=== PATIENT | female | born 1955 | race Caucasian/White ===

== ENCOUNTER 2021-12-03 09:57 | Inpatient (IN) | payer MEDICARE ==
[2021-12-03 10:44] LABS: Hemoglobin 14.4 g/dL (12.0-15.5); Mean Corpuscular HGB CONC 32.7 g/dL (32.0-36.0); Mean Corpuscular Hemoglobin 27.4 pg (27.0-33.0); Mean Platelet Volume 12.3 fl (7.4-10.4); Platelet Count 212 10x3/uL (150-450); RBC Distribution Width 17.5 % (11.5-14.5); Red Blood Cell (RBC) Count 5.25 10x6/uL (3.90-5.03); White Blood Cell (WBC) Count 20.2 10x3/uL (3.5-10.5)
[2021-12-03 10:53] LABS: ALT (SGPT) 45 U/L (8-55); AST (SGOT) 137 U/L (5-34); Albumin 3.7 g/dL (3.4-4.8); Alkaline Phosphatase 86 U/L (40-110); Anion Gap 20 mmol/L (10-20); BUN (Urea Nitrogen) 38 mg/dL (9.8-20.1); Bilirubin, Total 1.1 mg/dL (0.2-1.2); Calc. Creatinine Clearance 0 mL/min (70-130); Calcium 10.3 mg/dL (7.8-10.44); Carbon Dioxide 19 mmol/L (23-31); Chloride 100 mmol/L (98-107); Globulin 2.5 g/dL (2.4-3.5); Glucose 204 mg/dL (80-115); Potassium 5.1 mmol/L (3.5-5.1); Protein, Total 6.2 g/dL (5.8-8.1); Sodium 134 mmol/L (136-145)
[2021-12-03 11:00] LABS: MDiff Complete? YES
[2021-12-03 11:08] LABS: Band 14 % (5-11); Lymphocytes 4 % (21-51); Monocytes 1 % (0-10); Neutrophil 79 % (42-75); Platelet Morphology Comment Appears Adequate; Reactive Lymphocytes 2 % (0-10)
[2021-12-03 11:09] LABS: RBC Morphology Normal
[2021-12-03] MEDS ORDERED: Acetaminophen 500 MG TAB ONE (11:21)
[2021-12-03 11:29] LABS: CKMB 58.5 ng/mL (0-6.6)
[2021-12-03 13:42] LABS: Lactic Acid 2.4 mmol/L (0.5-2.2)
[2021-12-03 13:51] LABS: SARS-CoV-2 NAA Rapid Test Not Detected (NotDetected)
[2021-12-03] MEDS ORDERED: Dextrose 50% Abboject 50 ML SYRINGE SLOW IVP PRN (13:52)
[2021-12-03] MEDS ORDERED: Dextrose 5% in Water 1,000 ML IV PRN (13:52)
[2021-12-03 14:54] LABS: Troponin I 0.637 ng/mL (< 0.028)
[2021-12-03 15:07] LABS: Clarity Hazy (Clear); Glucose, Urine (Dipstick) Normal (Negative); Ketone, Urine Negative (Negative); Nitrite Negative (Negative); Urobilinogen Normal mg/dL (Less than 2)
[2021-12-03 15:08] LABS: Bilirubin Unable to Interpret (Negative); Blood, Urine Unable to Interpret (Negative); Leukocyte Unable to Interpret (Negative); Protein, Urine (Dipstick) Unable to Interpret mg/dl (Neg-Trace)
[2021-12-03 15:09] LABS: RBC/HPF 0-3 HPF (0-3); WBC/HPF 21-50 HPF (0-3)
[2021-12-03 15:13] VITALS: BMI 65.0
[2021-12-03 15:15] LABS: Squamous Epithelial 0-3 HPF (0-3)
[2021-12-03 15:16] LABS: Bacteria/HPF 2+ HPF (None Seen)
[2021-12-03] MEDS ORDERED: Apixaban 2.5 MG TAB PO SCH (16:00)
[2021-12-03 16:35] LABS: Troponin I 0.617 ng/mL (< 0.028)
[2021-12-03] MEDS: Sodium Chloride 0.9% 1,000 ML IV SCH (17:34)
[2021-12-03] MEDS: HumaLOG 300 UNITS/3 ML VIAL SC PRN (17:37)
[2021-12-03 18:13] LABS: Troponin I 0.546 ng/mL (< 0.028)
[2021-12-03] MEDS ORDERED: Digoxin 0.5 MG/2 ML AMP SLOW IVP SCH (18:30)
[2021-12-03 19:18] LABS: Lactic Acid 1.4 mmol/L (0.5-2.2)
[2021-12-03] MEDS: Apixaban 5 MG TAB PO SCH (20:35)
[2021-12-03] MEDS: Acetaminophen 325 MG TAB PO PRN (20:45)
[2021-12-04] MEDS ORDERED: Promethazine HCl 12.5 MG, Admixture Fee 1 EACH in Sodium Chloride 0.9% 50 ML IVPB SCH (03:30)
[2021-12-04] MEDS: Acetaminophen 325 MG TAB PO PRN (03:58)
[2021-12-04 04:27] LABS: Hemoglobin 13.5 g/dL (12.0-15.5); Mean Corpuscular HGB CONC 31.9 g/dL (32.0-36.0); Mean Corpuscular Hemoglobin 27.3 pg (27.0-33.0); Mean Corpuscular Volume 85.6 fl (81.6-98.3); Mean Platelet Volume 11.6 fl (7.4-10.4); Platelet Count 185 10x3/uL (150-450); RBC Distribution Width 17.2 % (11.5-14.5); Red Blood Cell (RBC) Count 4.94 10x6/uL (3.90-5.03); White Blood Cell (WBC) Count 21.2 10x3/uL (3.5-10.5)
[2021-12-04 04:38] LABS: MDiff Complete? YES; Manual Diff?? YES
[2021-12-04 04:40] LABS: Anion Gap 16 mmol/L (10-20); BUN (Urea Nitrogen) 40 mg/dL (9.8-20.1); CK (CPK) 2522 U/L (29-168); Calc. Creatinine Clearance 68 mL/min (70-130); Calcium 9.6 mg/dL (7.8-10.44); Carbon Dioxide 17 mmol/L (23-31); Chloride 106 mmol/L (98-107); Glucose 214 mg/dL (80-115); Potassium 4.8 mmol/L (3.5-5.1); Sodium 134 mmol/L (136-145)
[2021-12-04 04:49] LABS: Band 24 % (5-11); Lymphocytes 1 % (21-51); Metamyelocyte 2 % (0-0); Monocytes 7 % (0-10); Neutrophil 66 % (42-75)
[2021-12-04 04:50] LABS: Platelet Morphology Comment Appears Adequate
[2021-12-04 04:51] LABS: Anisocytosis SLIGHT = 6-15 cells (100X) (0-5/hpf); Dohle Bodies SLIGHT; Toxic Granulation SLIGHT; Vacuoles SLIGHT
[2021-12-04] MEDS: Sodium Chloride 0.9% 1,000 ML IV SCH ×2 (06:10→20:37)
[2021-12-04] MEDS ORDERED: Cepastat Lozenges 1 LOZ PO PRN (07:47)
[2021-12-04] MEDS ORDERED: Ondansetron ODT 4 MG TAB PO PRN (07:47)
[2021-12-04] MEDS ORDERED: Loperamide HCl 2 MG CAP PO PRN (07:47)
[2021-12-04] MEDS ORDERED: Ondansetron PF 4 MG/2 ML Vial IVP PRN (07:47)
[2021-12-04] MEDS ORDERED: Moisturizing Cream (Eucerin) 113 GM JAR TOP PRN (07:47)
[2021-12-04] MEDS ORDERED: Loratadine 10 MG TAB PO PRN (07:47)
[2021-12-04] MEDS ORDERED: hydrALAZINE 20 MG/ML VIAL SLOW IVP PRN (07:47)
[2021-12-04] MEDS ORDERED: GUAIFENESIN SF SOLN 200 MG/10 ML UDCUP PO PRN (07:47)
[2021-12-04] MEDS ORDERED: Artificial Tear Sol 15 ML BOT EA EYE PRN (07:47)
[2021-12-04] MEDS ORDERED: Meropenem 1 GM in Sodium Chloride 0.9% 100 ML IVPB SCH (08:30)
[2021-12-04] MEDS ORDERED: Senokot S 8.6-50 MG TAB PO PRN (09:00)
[2021-12-04 09:13] LABS: Calcium Oxalate Crystals Rare HPF (None Seen)
[2021-12-04] MEDS: Apixaban 5 MG TAB PO SCH ×2 (09:30→20:38)
[2021-12-04] MEDS: NPH, Human Insulin Isophane 300 UNIT/3 ML VIAL SC SCH ×2 (09:30→20:53)
[2021-12-04] MEDS: Digoxin 0.125 MG TAB PO SCH (09:38)
[2021-12-04] MEDS ORDERED: Iopamidol 30 ML ONE (14:44)
[2021-12-04] MEDS ORDERED: SUGAMMADEX SODIUM 200 MG/2 ML VIAL ONE (15:11)
[2021-12-04] MEDS ORDERED: PROPOFOL 20 ML ONE (15:11)
[2021-12-04] MEDS ORDERED: Succinylcholine 200 MG/10 ml SYRINGE FS ONE (15:13)
[2021-12-04] MEDS: Meropenem 1 GM in Sodium Chloride 0.9% 100 ML IVPB SCH (15:56)
[2021-12-04] MEDS ORDERED: Fentanyl 100 MCG/2 ML VIAL ONE (16:39)
[2021-12-04] MEDS ORDERED: Midazolam HCl 2 mg/2 ml Vial ONE (16:40)
[2021-12-04] MEDS ORDERED: Ondansetron PF 4 MG/2 ML Vial ONE (17:12)
[2021-12-04] MEDS ORDERED: Metoprolol Tartrate 5 MG/5 ML VIAL ONE (17:46)
[2021-12-04] MEDS: Metoprolol Tartrate 25 MG TAB PO SCH (20:38)
[2021-12-04] MEDS: HYDROcodone/Acetaminophen 5/325 mg Tablet PO PRN (20:47)
[2021-12-04] MEDS ORDERED: Zolpidem Tartrate 5 MG TAB PO PRN (21:00)
[2021-12-04] MEDS: Melatonin 3 MG TAB PO PRN (23:03)
[2021-12-05 03:28] LABS: MDiff Complete? YES; Manual Diff?? YES; Mean Corpuscular HGB CONC 31.7 g/dL (32.0-36.0); Mean Corpuscular Hemoglobin 27.1 pg (27.0-33.0); Mean Corpuscular Volume 85.4 fl (81.6-98.3); Mean Platelet Volume 12.5 fl (7.4-10.4); Platelet Count 172 10x3/uL (150-450); RBC Distribution Width 17.3 % (11.5-14.5)
[2021-12-05] MEDS: Meropenem 1 GM in Sodium Chloride 0.9% 100 ML IVPB SCH ×2 (03:37→17:46)
[2021-12-05 03:45] LABS: Band 25 % (5-11); Lymphocytes 3 % (21-51); Monocytes 6 % (0-10); Neutrophil 64 % (42-75); Reactive Lymphocytes 2 % (0-10)
[2021-12-05 03:46] LABS: Anisocytosis SLIGHT = 6-15 cells (100X) (0-5/hpf); Macrocytosis SLIGHT = 6-15 cells (100X) (0-5/hpf); Microcytosis SLIGHT = 6-15 cells (100X) (0-5/hpf); Target Cells SLIGHT = 2-5 cells (100X) (0-1/hpf)
[2021-12-05] MEDS: Acetaminophen 325 MG TAB PO PRN ×2 (03:46→09:50)
[2021-12-05 06:24] LABS: ALT (SGPT) 45 U/L (8-55); AST (SGOT) 55 U/L (5-34); Albumin 3.1 g/dL (3.4-4.8); Alkaline Phosphatase 84 U/L (40-110); Anion Gap 16 mmol/L (10-20); BUN (Urea Nitrogen) 40 mg/dL (9.8-20.1); Bilirubin, Direct 0.3 mg/dL (0.1-0.3); Bilirubin, Total 0.5 mg/dL (0.2-1.2); CK (CPK) 620 U/L (29-168); Calc. Creatinine Clearance 84 mL/min (70-130); Calcium 9.5 mg/dL (7.8-10.44); Carbon Dioxide 18 mmol/L (23-31); Chloride 107 mmol/L (98-107); Glucose 269 mg/dL (80-115); Magnesium 1.9 mg/dL (1.6-2.6); Phosphorus 2.7 mg/dL (2.3-4.7); Potassium 4.8 mmol/L (3.5-5.1); Sodium 136 mmol/L (136-145)
[2021-12-05] MEDS: HumaLOG 300 UNITS/3 ML VIAL SC PRN ×4 (06:35→21:45)
[2021-12-05] MEDS: Apixaban 5 MG TAB PO SCH ×2 (09:41→21:31)
[2021-12-05] MEDS: Digoxin 0.125 MG TAB PO SCH (09:42)
[2021-12-05] MEDS: Metoprolol Tartrate 25 MG TAB PO SCH ×2 (09:43→21:31)
[2021-12-05] MEDS: NPH, Human Insulin Isophane 300 UNIT/3 ML VIAL SC SCH ×2 (09:44→21:41)
[2021-12-05] MEDS: HYDROcodone/Acetaminophen 5/325 mg Tablet PO PRN (14:21)
[2021-12-05] MEDS: Sodium Chloride 0.9% 1,000 ML IV SCH (14:28)
[2021-12-06] MEDS: Acetaminophen 325 MG TAB PO PRN ×5 (00:36→22:59)
[2021-12-06] MEDS: Sodium Chloride 0.9% 1,000 ML IV SCH (00:53)
[2021-12-06] MEDS: Meropenem 1 GM in Sodium Chloride 0.9% 100 ML IVPB SCH ×3 (04:36→21:42)
[2021-12-06 04:53] LABS: #Eosinphils 0.2 10x3/uL (0.0-0.5); #Monocytes 1.3 10x3/uL (0.0-1.1); #Neutrophils 11.6 10x3/uL (1.5-8.4); %Basophils 0.3 % (0.0-2.0); %Lymphocytes 7.9 % (18.0-47.0); %Monocytes 9.1 % (0.0-10.0); %Neutrophils 80.7 % (40.0-75.0); Hemoglobin 13.1 g/dL (12.0-15.5); Mean Corpuscular HGB CONC 32.1 g/dL (32.0-36.0); Mean Corpuscular Hemoglobin 27.2 pg (27.0-33.0); Mean Corpuscular Volume 84.8 fl (81.6-98.3); Mean Platelet Volume 12.5 fl (7.4-10.4); Platelet Count 195 10x3/uL (150-450); Red Blood Cell (RBC) Count 4.81 10x6/uL (3.90-5.03); White Blood Cell (WBC) Count 14.4 10x3/uL (3.5-10.5)
[2021-12-06 05:04] LABS: Anion Gap 13 mmol/L (10-20); BUN (Urea Nitrogen) 33 mg/dL (9.8-20.1); Calc. Creatinine Clearance 135 mL/min (70-130); Calcium 9.5 mg/dL (7.8-10.44); Carbon Dioxide 20 mmol/L (23-31); Chloride 107 mmol/L (98-107); Glucose 273 mg/dL (80-115); Potassium 4.6 mmol/L (3.5-5.1); Sodium 135 mmol/L (136-145)
[2021-12-06] MEDS: HumaLOG 300 UNITS/3 ML VIAL SC PRN ×3 (05:38→16:05)
[2021-12-06] MEDS ORDERED: NPH, Human Insulin Isophane 300 UNIT/3 ML VIAL SC SCH ×2 (07:42→07:45)
[2021-12-06] MEDS: Polyethylene Glycol 3350 17 GM Packet PO SCH (09:11)
[2021-12-06] MEDS: Metoprolol Tartrate 25 MG TAB PO SCH ×2 (09:12→20:46)
[2021-12-06] MEDS: Digoxin 0.125 MG TAB PO SCH (09:13)
[2021-12-06] MEDS: Apixaban 5 MG TAB PO SCH ×2 (09:14→20:46)
[2021-12-06] MEDS ORDERED: Digoxin 0.125 MG TAB PO SCH (12:00)
[2021-12-06] MEDS: HYDROcodone/Acetaminophen 5/325 mg Tablet PO PRN (13:19)
[2021-12-06] MEDS: Melatonin 3 MG TAB PO PRN (20:46)
[2021-12-06] MEDS: NPH, Human Insulin Isophane 300 UNIT/3 ML VIAL SC SCH (20:49)
[2021-12-07] MEDS: Meropenem 1 GM in Sodium Chloride 0.9% 100 ML IVPB SCH ×3 (03:45→21:01)
[2021-12-07 04:20] LABS: #Basophils 0.1 10x3/uL (0.0-0.2); #Eosinphils 0.3 10x3/uL (0.0-0.5); #Monocytes 1.6 10x3/uL (0.0-1.1); #Neutrophils 9.4 10x3/uL (1.5-8.4); %Basophils 0.8 % (0.0-2.0); %Lymphocytes 12.8 % (18.0-47.0); %Monocytes 11.6 % (0.0-10.0); %Neutrophils 69.7 % (40.0-75.0); Hemoglobin 14.1 g/dL (12.0-15.5); Mean Corpuscular HGB CONC 32.8 g/dL (32.0-36.0); Mean Corpuscular Hemoglobin 27.5 pg (27.0-33.0); Mean Platelet Volume 12.1 fl (7.4-10.4); Platelet Count 212 10x3/uL (150-450); RBC Distribution Width 17.1 % (11.5-14.5); Red Blood Cell (RBC) Count 5.12 10x6/uL (3.90-5.03); White Blood Cell (WBC) Count 13.5 10x3/uL (3.5-10.5)
[2021-12-07] MEDS: HYDROcodone/Acetaminophen 5/325 mg Tablet PO PRN (04:49)
[2021-12-07 04:53] LABS: Digoxin 0.39 ng/mL (0.8-2.0)
[2021-12-07 04:56] LABS: Anion Gap 14 mmol/L (10-20); BUN (Urea Nitrogen) 28 mg/dL (9.8-20.1); CK (CPK) 103 U/L (29-168); Calc. Creatinine Clearance 158 mL/min (70-130); Calcium 9.3 mg/dL (7.8-10.44); Carbon Dioxide 21 mmol/L (23-31); Chloride 107 mmol/L (98-107); Glucose 249 mg/dL (80-115); Potassium 4.6 mmol/L (3.5-5.1); Sodium 137 mmol/L (136-145)
[2021-12-07] MEDS: HumaLOG 300 UNITS/3 ML VIAL SC PRN (06:22)
[2021-12-07] MEDS: Metoprolol Tartrate 25 MG TAB PO SCH ×2 (10:06→20:59)
[2021-12-07] MEDS: Acetaminophen 325 MG TAB PO PRN ×3 (10:07→20:15)
[2021-12-07] MEDS: Digoxin 0.25 MG TAB PO SCH (10:07)
[2021-12-07] MEDS: Apixaban 5 MG TAB PO SCH ×2 (10:07→20:59)
[2021-12-07] MEDS: Polyethylene Glycol 3350 17 GM Packet PO SCH (10:11)
[2021-12-07] MEDS: NPH, Human Insulin Isophane 300 UNIT/3 ML VIAL SC SCH ×2 (12:17→21:01)
[2021-12-07] MEDS ORDERED: Sodium Chloride 0.9% 100 ML ONE (20:33)
[2021-12-07] MEDS: Melatonin 3 MG TAB PO PRN (20:58)
[2021-12-08] MEDS: Acetaminophen 325 MG TAB PO PRN ×6 (01:04→21:19)
[2021-12-08 04:40] LABS: Hemoglobin 14.2 g/dL (12.0-15.5); Mean Corpuscular HGB CONC 33.6 g/dL (32.0-36.0); Mean Corpuscular Hemoglobin 27.3 pg (27.0-33.0); Mean Corpuscular Volume 81.3 fl (81.6-98.3); Mean Platelet Volume 12.4 fl (7.4-10.4); Platelet Count 256 10x3/uL (150-450); RBC Distribution Width 16.9 % (11.5-14.5); White Blood Cell (WBC) Count 14.1 10x3/uL (3.5-10.5)
[2021-12-08 05:10] LABS: Anion Gap 15 mmol/L (10-20); BUN (Urea Nitrogen) 26 mg/dL (9.8-20.1); Calc. Creatinine Clearance 175 mL/min (70-130); Calcium 9.5 mg/dL (7.8-10.44); Carbon Dioxide 20 mmol/L (23-31); Chloride 107 mmol/L (98-107); Glucose 269 mg/dL (80-115); Potassium 6.1 mmol/L (3.5-5.1); Sodium 136 mmol/L (136-145)
[2021-12-08 05:15] LABS: MDiff Complete? YES; Manual Diff?? YES
[2021-12-08 05:21] LABS: Band 1 % (5-11); Eosinophils 2 % (0-10); Lymphocytes 5 % (21-51); Monocytes 18 % (0-10); Neutrophil 72 % (42-75); Reactive Lymphocytes 2 % (0-10)
[2021-12-08 05:22] LABS: Anisocytosis SLIGHT = 6-15 cells (100X) (0-5/hpf); Platelet Morphology Comment Appears Adequate
[2021-12-08] MEDS: Meropenem 1 GM in Sodium Chloride 0.9% 100 ML IVPB SCH ×3 (05:29→21:00)
[2021-12-08] MEDS: HumaLOG 300 UNITS/3 ML VIAL SC PRN ×2 (06:45→20:57)
[2021-12-08 08:32] LABS: Potassium 4.4 mmol/L (3.5-5.1)
[2021-12-08] MEDS: Polyethylene Glycol 3350 17 GM Packet PO SCH (10:00)
[2021-12-08] MEDS: Metoprolol Tartrate 25 MG TAB PO SCH ×2 (10:00→19:52)
[2021-12-08] MEDS: Apixaban 5 MG TAB PO SCH ×2 (10:01→19:51)
[2021-12-08] MEDS: Digoxin 0.25 MG TAB PO SCH (10:01)
[2021-12-08] MEDS: NPH, Human Insulin Isophane 300 UNIT/3 ML VIAL SC SCH ×2 (10:02→20:57)
[2021-12-09] MEDS: Acetaminophen 325 MG TAB PO PRN ×6 (03:04→21:09)
[2021-12-09] MEDS: Melatonin 3 MG TAB PO PRN ×2 (03:13→20:53)
[2021-12-09] MEDS: Meropenem 1 GM in Sodium Chloride 0.9% 100 ML IVPB SCH ×3 (05:39→22:03)
[2021-12-09] MEDS: HumaLOG 300 UNITS/3 ML VIAL SC PRN ×3 (05:39→16:44)
[2021-12-09] MEDS: Polyethylene Glycol 3350 17 GM Packet PO SCH (08:40)
[2021-12-09] MEDS: Apixaban 5 MG TAB PO SCH ×2 (08:41→20:53)
[2021-12-09] MEDS: Digoxin 0.25 MG TAB PO SCH (08:41)
[2021-12-09] MEDS: NPH, Human Insulin Isophane 300 UNIT/3 ML VIAL SC SCH ×2 (08:42→20:55)
[2021-12-09] MEDS: Metoprolol Tartrate 25 MG TAB PO SCH ×2 (08:42→20:53)
[2021-12-09] MEDS ORDERED: Mineral Oil ENEMA PR SCH (13:45)
[2021-12-10] MEDS: Acetaminophen 325 MG TAB PO PRN ×5 (01:00→20:53)
[2021-12-10] MEDS: Meropenem 1 GM in Sodium Chloride 0.9% 100 ML IVPB SCH ×3 (05:53→21:01)
[2021-12-10 07:06] LABS: #Basophils 0.1 10x3/uL (0.0-0.2); #Eosinphils 0.3 10x3/uL (0.0-0.5); #Monocytes 1.1 10x3/uL (0.0-1.1); #Neutrophils 9.6 10x3/uL (1.5-8.4); %Basophils 0.4 % (0.0-2.0); %Eosinophils 1.9 % (0.0-6.0); %Lymphocytes 14.5 % (18.0-47.0); %Monocytes 8.5 % (0.0-10.0); %Neutrophils 72.9 % (40.0-75.0); Anion Gap 11 mmol/L (10-20); BUN (Urea Nitrogen) 20 mg/dL (9.8-20.1); Calc. Creatinine Clearance 204 mL/min (70-130); Calcium 9.3 mg/dL (7.8-10.44); Carbon Dioxide 26 mmol/L (23-31); Chloride 107 mmol/L (98-107); Glucose 151 mg/dL (80-115); Hemoglobin 15.4 g/dL (12.0-15.5); Mean Corpuscular HGB CONC 33.2 g/dL (32.0-36.0); Mean Corpuscular Hemoglobin 26.9 pg (27.0-33.0); Mean Platelet Volume 11.8 fl (7.4-10.4); Platelet Count 305 10x3/uL (150-450); Potassium 4.4 mmol/L (3.5-5.1); RBC Distribution Width 17.7 % (11.5-14.5); Red Blood Cell (RBC) Count 5.73 10x6/uL (3.90-5.03); Sodium 140 mmol/L (136-145); White Blood Cell (WBC) Count 13.1 10x3/uL (3.5-10.5)
[2021-12-10] MEDS: Polyethylene Glycol 3350 17 GM Packet PO SCH (08:15)
[2021-12-10] MEDS: Apixaban 5 MG TAB PO SCH ×2 (08:16→20:53)
[2021-12-10] MEDS: Metoprolol Tartrate 25 MG TAB PO SCH ×2 (08:16→20:54)
[2021-12-10] MEDS: Digoxin 0.25 MG TAB PO SCH (08:16)
[2021-12-10] MEDS: NPH, Human Insulin Isophane 300 UNIT/3 ML VIAL SC SCH ×2 (08:24→20:59)
[2021-12-10] MEDS: HumaLOG 300 UNITS/3 ML VIAL SC PRN ×2 (11:57→18:21)
[2021-12-10] MEDS ORDERED: Mineral Oil ENEMA PR SCH (12:00)
[2021-12-10 12:15] LABS: INR-International Normal Ratio 1.1; Prothrombin Time 11.9 sec (9.5-12.1)
[2021-12-10] MEDS ORDERED: Sodium Bicarbonate 2.5 MEQ/5 ML VIAL ONE (12:44)
[2021-12-10] MEDS ORDERED: Lidocaine 1% PF 5 ML VIAL ONE (12:44)
[2021-12-10] MEDS ORDERED: GoLYTELY 4,000 ml Bottle PO SCH (17:00)
[2021-12-11 00:18] LABS: SARS-CoV-2 PCR by NAA Not Detected (NotDetected)
[2021-12-11] MEDS: Acetaminophen 325 MG TAB PO PRN ×2 (00:53→04:51)
[2021-12-11 05:07] LABS: #Basophils 0.1 10x3/uL (0.0-0.2); #Eosinphils 0.2 10x3/uL (0.0-0.5); #Monocytes 0.9 10x3/uL (0.0-1.1); #Neutrophils 11.1 10x3/uL (1.5-8.4); %Basophils 0.4 % (0.0-2.0); %Eosinophils 1.4 % (0.0-6.0); %Lymphocytes 13.7 % (18.0-47.0); %Monocytes 6.5 % (0.0-10.0); %Neutrophils 76.9 % (40.0-75.0); Hemoglobin 14.6 g/dL (12.0-15.5); Mean Corpuscular HGB CONC 33.3 g/dL (32.0-36.0); Mean Corpuscular Hemoglobin 27.3 pg (27.0-33.0); Mean Corpuscular Volume 81.9 fl (81.6-98.3); Mean Platelet Volume 12.1 fl (7.4-10.4); Platelet Count 287 10x3/uL (150-450); Red Blood Cell (RBC) Count 5.35 10x6/uL (3.90-5.03); White Blood Cell (WBC) Count 14.4 10x3/uL (3.5-10.5)
[2021-12-11] MEDS: Meropenem 1 GM in Sodium Chloride 0.9% 100 ML IVPB SCH (05:11)
[2021-12-11 05:19] LABS: Anion Gap 13 mmol/L (10-20); BUN (Urea Nitrogen) 18 mg/dL (9.8-20.1); Calc. Creatinine Clearance 220 mL/min (70-130); Calcium 8.8 mg/dL (7.8-10.44); Carbon Dioxide 27 mmol/L (23-31); Chloride 105 mmol/L (98-107); Glucose 142 mg/dL (80-115); Potassium 4.9 mmol/L (3.5-5.1); Sodium 140 mmol/L (136-145)
[2021-12-11 07:55] VITALS: TEMP 97.4
[2021-12-11] MEDS: Metoprolol Tartrate 25 MG TAB PO SCH (09:34)
[2021-12-11] MEDS: Apixaban 5 MG TAB PO SCH (09:34)
[2021-12-11] MEDS: Digoxin 0.25 MG TAB PO SCH (09:34)
[2021-12-11] MEDS: NPH, Human Insulin Isophane 300 UNIT/3 ML VIAL SC SCH (09:34)
[2021-12-11] MEDS: Polyethylene Glycol 3350 17 GM Packet PO SCH (09:35)
[2021-12-11 12:04] VITALS: BP 148/94
== END 2021-12-11 11:17 | DRG 853 ==
LOC: CSHERS 09:57 → CSHTELE 13:04
PROVIDERS: ADMIT Student in an Organized Health Care Education/Training Program; ATTEND Internal Medicine
PROC: 5A09357 Assistance with Respiratory Ventilation, Less than 24 Consecutive Hours, Continuous Positive Airway Pressure (ICD-10-PCS; 2021-12-03)
PROC: 0T778DZ Dilation of Left Ureter with Intraluminal Device, Via Natural or Artificial Opening Endoscopic (ICD-10-PCS; principal; 2021-12-04)
PROC: BT1F1ZZ Fluoroscopy of Left Kidney, Ureter and Bladder using Low Osmolar Contrast (ICD-10-PCS; 2021-12-04)
PROC: 02HV33Z Insertion of Infusion Device into Superior Vena Cava, Percutaneous Approach (ICD-10-PCS; 2021-12-10)
PROC: B5181ZA Fluoroscopy of Superior Vena Cava using Low Osmolar Contrast, Guidance (ICD-10-PCS; 2021-12-10)
PROC: B548ZZA Ultrasonography of Superior Vena Cava, Guidance (ICD-10-PCS; 2021-12-10)
DX: A41.59 Other Gram-negative sepsis (principal); I21.A1 Myocardial infarction type 2; J96.01 Acute respiratory failure with hypoxia; N17.9 Acute kidney failure, unspecified; N13.6 Pyonephrosis; I48.21 Permanent atrial fibrillation; Z68.44 Body mass index [BMI] 60.0-69.9, adult; J90 Pleural effusion, not elsewhere classified; J98.11 Atelectasis; F41.1 Generalized anxiety disorder; R65.20 Severe sepsis without septic shock; J45.909 Unspecified asthma, uncomplicated; E66.01 Morbid (severe) obesity due to excess calories; G47.33 Obstructive sleep apnea (adult) (pediatric); M19.90 Unspecified osteoarthritis, unspecified site; G25.81 Restless legs syndrome; E11.40 Type 2 diabetes mellitus with diabetic neuropathy, unspecified; Z20.822 Contact with and (suspected) exposure to COVID-19; T79.6XXA Traumatic ischemia of muscle, initial encounter; E11.65 Type 2 diabetes mellitus with hyperglycemia; K59.00 Constipation, unspecified; W19.XXXA Unspecified fall, initial encounter; Z91.81 History of falling; Z79.82 Long term (current) use of aspirin; Z79.01 Long term (current) use of anticoagulants; Z88.1 Allergy status to other antibiotic agents; Z88.0 Allergy status to penicillin; Z79.899 Other long term (current) drug therapy; Z79.4 Long term (current) use of insulin; Y92.9 Unspecified place or not applicable
CPT/HCPCS: 36415; 36416; 36569; 51600; 51701; 70450; 71045; 74176; 74430; 80048; 80053; 80076; 80162; 81001; 82550; 82553; 83605; 83735; 84100; 84484; 85025; 85610; 87040; 87070; 87077; 87086; 87149; 87186; 87205; 93005; 93010; 94760; 96374; C1751; C2625; J1160; J1815; J1956; J2185; J2250; J2405; J2550; J2704; J3010; J3370; J3490; J7050; Q9967; U0003; U0005

== ENCOUNTER 2021-12-27 14:25 | Inpatient (IN) | payer MEDICARE ==
[~2021-12-27 14:25] MED LIST: Iopamidol 370 76% 100 ML VIAL ONE
[2021-12-27 15:04] LABS: #Basophils 0.1 10x3/uL (0.0-0.2); #Monocytes 0.8 10x3/uL (0.0-1.1); #Neutrophils 8.2 10x3/uL (1.5-8.4); %Basophils 0.6 % (0.0-2.0); %Eosinophils 0.4 % (0.0-6.0); %Lymphocytes 9.5 % (18.0-47.0); %Monocytes 7.9 % (0.0-10.0); %Neutrophils 81.1 % (40.0-75.0); Hemoglobin 13.9 g/dL (12.0-15.5); Mean Corpuscular Hemoglobin 26.3 pg (27.0-33.0); Mean Corpuscular Volume 82.4 fl (81.6-98.3); Mean Platelet Volume 11.4 fl (7.4-10.4); Platelet Count 249 10x3/uL (150-450); RBC Distribution Width 15.9 % (11.5-14.5); Red Blood Cell (RBC) Count 5.28 10x6/uL (3.90-5.03); White Blood Cell (WBC) Count 10.1 10x3/uL (3.5-10.5)
[2021-12-27] MEDS ORDERED: Ondansetron PF 4 MG/2 ML Vial ONE (15:05)
[2021-12-27] MEDS ORDERED: Cefepime 2 GM VIAL ONE (15:06)
[2021-12-27] MEDS ORDERED: Vancomycin HCl 500 MG VIAL ONE (15:06)
[2021-12-27 15:19] LABS: ALT (SGPT) 58 U/L (8-55); Albumin 3.3 g/dL (3.4-4.8); Alkaline Phosphatase 157 U/L (40-110); Anion Gap 14 mmol/L (10-20); BUN (Urea Nitrogen) 15 mg/dL (9.8-20.1); Bilirubin, Total 0.7 mg/dL (0.2-1.2); Calc. Creatinine Clearance 0 mL/min (70-130); Carbon Dioxide 28 mmol/L (23-31); Chloride 95 mmol/L (98-107); Globulin 3.9 g/dL (2.4-3.5); Glucose 143 mg/dL (80-115); Lipase 16 U/L (8-78); Potassium 4.9 mmol/L (3.5-5.1); Protein, Total 7.2 g/dL (5.8-8.1); Sodium 132 mmol/L (136-145)
[2021-12-27 15:21] LABS: AST (SGOT) 81 U/L (5-34)
[2021-12-27] MEDS ORDERED: Meropenem 500 MG VIAL ONE (16:13)
[2021-12-27 16:14] LABS: Bilirubin Neg (Negative); Blood, Urine 250 (Negative); Clarity Cloudy (Clear); Glucose, Urine (Dipstick) Normal (Negative); Ketone, Urine 5 mg/dL (Negative); Leukocyte 500 (Negative); Nitrite Positive (Negative); Protein, Urine (Dipstick) 100 mg/dl (Neg-Trace); Urobilinogen Normal mg/dL (Less than 2)
[2021-12-27 16:25] LABS: SARS-CoV-2 NAA Rapid Test Not Detected (NotDetected)
[2021-12-27 16:35] LABS: Bacteria/HPF 4+ HPF (None Seen); Squamous Epithelial 0-3 HPF (0-3); WBC/HPF Greater Than 50 HPF (0-3)
[2021-12-27] MEDS ORDERED: Ondansetron PF 4 MG/2 ML Vial IVP PRN (18:24)
[2021-12-27 20:03] VITALS: BMI 70.8
[2021-12-27] MEDS ORDERED: Zolpidem Tartrate 5 MG TAB PO PRN (20:41)
[2021-12-27] MEDS ORDERED: Dextrose 50% Abboject 50 ML SYRINGE SLOW IVP PRN (20:41)
[2021-12-27] MEDS ORDERED: HumaLOG 300 UNITS/3 ML VIAL SC PRN (20:41)
[2021-12-27] MEDS ORDERED: Dextrose 5% in Water 1,000 ML IV PRN (20:41)
[2021-12-27] MEDS ORDERED: Bisacodyl 10 MG SUPP PR PRN (20:41)
[2021-12-27] MEDS ORDERED: Senokot 8.6 MG TAB PO PRN (20:44)
[2021-12-27] MEDS ORDERED: Nystatin Powder 15 GM BOT TOP PRN (20:44)
[2021-12-27] MEDS ORDERED: Melatonin 3 MG TAB PO PRN (20:44)
[2021-12-27] MEDS ORDERED: Artificial Tear Sol 15 ML BOT EA EYE PRN (20:44)
[2021-12-27] MEDS ORDERED: Hydrocortisone 1% Cream 30 GM TUBE TOP PRN (20:44)
[2021-12-27] MEDS ORDERED: [UNRECOGNIZED DRUG - OTHER] PO PRN (20:44)
[2021-12-27] MEDS ORDERED: NPH, Human Insulin Isophane 300 UNIT/3 ML VIAL SC SCH (21:00)
[2021-12-27] MEDS ORDERED: Bisacodyl 5 MG TAB PO SCH (21:00)
[2021-12-27] MEDS ORDERED: Menthol/Camphor Lotion 222 ml Bottle TOP PRN (21:00)
[2021-12-27] MEDS ORDERED: Furosemide 40 MG/4 ML VIAL SLOW IVP SCH (21:00)
[2021-12-27 21:22] LABS: #Basophils 0.1 10x3/uL (0.0-0.2); %Basophils 0.8 % (0.0-2.0); %Eosinophils 0.3 % (0.0-6.0); %Lymphocytes 14.2 % (18.0-47.0); %Monocytes 10.6 % (0.0-10.0); %Neutrophils 73.7 % (40.0-75.0); Hemoglobin 13.1 g/dL (12.0-15.5); Mean Corpuscular HGB CONC 32.3 g/dL (32.0-36.0); Mean Corpuscular Hemoglobin 26.7 pg (27.0-33.0); Mean Corpuscular Volume 82.7 fl (81.6-98.3); Mean Platelet Volume 11.1 fl (7.4-10.4); Platelet Count 213 10x3/uL (150-450); RBC Distribution Width 15.6 % (11.5-14.5); White Blood Cell (WBC) Count 9.5 10x3/uL (3.5-10.5)
[2021-12-27 21:33] LABS: ALT (SGPT) 49 U/L (8-55); AST (SGOT) 57 U/L (5-34); Albumin 3.2 g/dL (3.4-4.8); Alkaline Phosphatase 141 U/L (40-110); Anion Gap 14 mmol/L (10-20); BUN (Urea Nitrogen) 13 mg/dL (9.8-20.1); Bilirubin, Total 0.6 mg/dL (0.2-1.2); Calc. Creatinine Clearance 223 mL/min (70-130); Calcium 9.5 mg/dL (7.8-10.44); Carbon Dioxide 25 mmol/L (23-31); Chloride 99 mmol/L (98-107); Globulin 3.1 g/dL (2.4-3.5); Glucose 143 mg/dL (80-115); Potassium 4.4 mmol/L (3.5-5.1); Protein, Total 6.3 g/dL (5.8-8.1); Sodium 134 mmol/L (136-145)
[2021-12-27] MEDS: Gabapentin 100 MG CAP PO SCH (22:41)
[2021-12-27] MEDS: Famotidine 20 MG TAB PO SCH (22:41)
[2021-12-27] MEDS: Acetaminophen 325 MG TAB PO PRN (22:41)
[2021-12-27] MEDS: Apixaban 5 MG TAB PO SCH (22:42)
[2021-12-27] MEDS: NPH, Human Insulin Isophane 300 UNIT/3 ML VIAL SC SCH (22:42)
[2021-12-27] MEDS: Metoprolol Tartrate 25 MG TAB PO SCH (22:42)
[2021-12-27] MEDS: Sodium Chloride 0.9% 1,000 ML IV SCH (22:47)
[2021-12-28] MEDS: Meropenem 1 GM in Sodium Chloride 0.9% 100 ML IVPB SCH ×2 (01:06→09:40)
[2021-12-28 05:05] LABS: Hemoglobin 13.7 g/dL (12.0-15.5); Mean Corpuscular HGB CONC 31.9 g/dL (32.0-36.0); Mean Corpuscular Hemoglobin 26.6 pg (27.0-33.0); Mean Corpuscular Volume 83.5 fl (81.6-98.3); Mean Platelet Volume 11.5 fl (7.4-10.4); Platelet Count 196 10x3/uL (150-450); RBC Distribution Width 15.8 % (11.5-14.5); Red Blood Cell (RBC) Count 5.15 10x6/uL (3.90-5.03); White Blood Cell (WBC) Count 8.3 10x3/uL (3.5-10.5)
[2021-12-28 05:23] LABS: ALT (SGPT) 43 U/L (8-55); AST (SGOT) 51 U/L (5-34); Albumin 2.9 g/dL (3.4-4.8); Alkaline Phosphatase 139 U/L (40-110); Anion Gap 14 mmol/L (10-20); BUN (Urea Nitrogen) 12 mg/dL (9.8-20.1); Bilirubin, Total 0.5 mg/dL (0.2-1.2); Calc. Creatinine Clearance 211 mL/min (70-130); Calcium 9.1 mg/dL (7.8-10.44); Carbon Dioxide 25 mmol/L (23-31); Chloride 101 mmol/L (98-107); Glucose 115 mg/dL (80-115); Magnesium 1.8 mg/dL (1.6-2.6); Potassium 4.1 mmol/L (3.5-5.1); Protein, Total 5.9 g/dL (5.8-8.1); Sodium 136 mmol/L (136-145)
[2021-12-28 05:25] LABS: MDiff Complete? YES
[2021-12-28 05:28] LABS: Band 7 % (5-11); Eosinophils 2 % (0-10); Lymphocytes 21 % (21-51); Monocytes 11 % (0-10); Neutrophil 55 % (42-75); Reactive Lymphocytes 2 % (0-10)
[2021-12-28 05:29] LABS: Large Platelets SLIGHT; Platelet Morphology Comment Appears Adequate; RBC Morphology Normal
[2021-12-28] MEDS: Sodium Chloride 0.9% 1,000 ML IV SCH ×2 (07:55→12:30)
[2021-12-28] MEDS: Famotidine 20 MG TAB PO SCH ×2 (09:37→20:58)
[2021-12-28] MEDS: Gabapentin 100 MG CAP PO SCH ×3 (09:38→20:58)
[2021-12-28] MEDS: Apixaban 5 MG TAB PO SCH ×2 (09:38→20:57)
[2021-12-28] MEDS: Digoxin 0.25 MG TAB PO SCH (09:38)
[2021-12-28] MEDS: Furosemide 40 MG/4 ML VIAL SLOW IVP SCH (09:39)
[2021-12-28] MEDS: NPH, Human Insulin Isophane 300 UNIT/3 ML VIAL SC SCH ×2 (09:46→20:59)
[2021-12-28] MEDS: Metoprolol Tartrate 25 MG TAB PO SCH ×2 (09:46→20:54)
[2021-12-28] MEDS: Acetaminophen 325 MG TAB PO PRN (11:42)
[2021-12-28] MEDS: Milk Of Magnesia 30 ML UDCUP PO PRN (12:06)
[2021-12-28] MEDS: HumaLOG 300 UNITS/3 ML VIAL SC PRN (12:07)
[2021-12-28] MEDS ORDERED: Ketorolac Tromethamine 30 MG/ML VIAL IVP SCH (12:15)
[2021-12-28] MEDS: HYDROcodone/Acetaminophen 5/325 mg Tablet PO PRN ×2 (12:52→21:45)
[2021-12-28] MEDS: Senokot S 8.6-50 MG TAB PO SCH (20:58)
[2021-12-29] MEDS: Sodium Chloride 0.9% 1,000 ML IV SCH ×3 (02:22→12:02)
[2021-12-29] MEDS: Meropenem 1 GM in Sodium Chloride 0.9% 100 ML IVPB SCH ×4 (02:25→17:14)
[2021-12-29] MEDS: Acetaminophen 325 MG TAB PO PRN (05:50)
[2021-12-29 06:13] LABS: Anion Gap 12 mmol/L (10-20); BUN (Urea Nitrogen) 14 mg/dL (9.8-20.1); Calc. Creatinine Clearance 223 mL/min (70-130); Calcium 9.7 mg/dL (7.8-10.44); Carbon Dioxide 29 mmol/L (23-31); Chloride 100 mmol/L (98-107); Glucose 87 mg/dL (80-115); Potassium 4.3 mmol/L (3.5-5.1); Sodium 137 mmol/L (136-145)
[2021-12-29 06:29] LABS: Hemoglobin 14.2 g/dL (12.0-15.5); Mean Corpuscular HGB CONC 31.8 g/dL (32.0-36.0); Mean Corpuscular Hemoglobin 26.6 pg (27.0-33.0); Mean Corpuscular Volume 83.7 fl (81.6-98.3); Mean Platelet Volume 11.6 fl (7.4-10.4); Platelet Count 206 10x3/uL (150-450); RBC Distribution Width 15.7 % (11.5-14.5); Red Blood Cell (RBC) Count 5.33 10x6/uL (3.90-5.03); White Blood Cell (WBC) Count 7.3 10x3/uL (3.5-10.5)
[2021-12-29 07:06] LABS: MDiff Complete? YES
[2021-12-29 07:09] LABS: Band 3 % (5-11); Eosinophils 2 % (0-10); Lymphocytes 18 % (21-51); Monocytes 14 % (0-10); Neutrophil 62 % (42-75); Reactive Lymphocytes 1 % (0-10)
[2021-12-29 07:10] LABS: Platelet Morphology Comment Appears Adequate; RBC Morphology Normal
[2021-12-29] MEDS: Senokot S 8.6-50 MG TAB PO SCH ×2 (09:26→21:41)
[2021-12-29] MEDS: Gabapentin 100 MG CAP PO SCH ×3 (09:26→21:40)
[2021-12-29] MEDS: Famotidine 20 MG TAB PO SCH ×2 (09:27→21:41)
[2021-12-29] MEDS: Metoprolol Tartrate 25 MG TAB PO SCH ×2 (09:27→21:40)
[2021-12-29] MEDS: Digoxin 0.25 MG TAB PO SCH (09:27)
[2021-12-29] MEDS: Apixaban 5 MG TAB PO SCH ×2 (09:27→21:40)
[2021-12-29] MEDS: NPH, Human Insulin Isophane 300 UNIT/3 ML VIAL SC SCH ×2 (09:28→21:45)
[2021-12-29] MEDS: Furosemide 40 MG/4 ML VIAL SLOW IVP SCH (09:28)
[2021-12-29] MEDS: HYDROcodone/Acetaminophen 5/325 mg Tablet PO PRN ×3 (09:31→21:38)
[2021-12-29] MEDS: HumaLOG 300 UNITS/3 ML VIAL SC PRN (12:22)
[2021-12-30] MEDS: Meropenem 1 GM in Sodium Chloride 0.9% 100 ML IVPB SCH ×3 (00:16→17:57)
[2021-12-30] MEDS: Sodium Chloride 0.9% 1,000 ML IV SCH ×4 (00:20→17:58)
[2021-12-30 05:13] LABS: #Basophils 0.1 10x3/uL (0.0-0.2); #Eosinphils 0.3 10x3/uL (0.0-0.5); #Monocytes 1.4 10x3/uL (0.0-1.1); #Neutrophils 6.1 10x3/uL (1.5-8.4); %Basophils 0.6 % (0.0-2.0); %Eosinophils 3.6 % (0.0-6.0); %Lymphocytes 16.4 % (18.0-47.0); %Monocytes 14.1 % (0.0-10.0); %Neutrophils 63.8 % (40.0-75.0); Hemoglobin 13.5 g/dL (12.0-15.5); Mean Corpuscular HGB CONC 32.8 g/dL (32.0-36.0); Mean Corpuscular Hemoglobin 26.8 pg (27.0-33.0); Mean Corpuscular Volume 81.7 fl (81.6-98.3); Mean Platelet Volume 11.9 fl (7.4-10.4); Platelet Count 242 10x3/uL (150-450); RBC Distribution Width 15.8 % (11.5-14.5); Red Blood Cell (RBC) Count 5.03 10x6/uL (3.90-5.03); White Blood Cell (WBC) Count 9.6 10x3/uL (3.5-10.5)
[2021-12-30 05:23] LABS: Anion Gap 15 mmol/L (10-20); BUN (Urea Nitrogen) 13 mg/dL (9.8-20.1); Calc. Creatinine Clearance 247 mL/min (70-130); Calcium 9.5 mg/dL (7.8-10.44); Carbon Dioxide 25 mmol/L (23-31); Chloride 103 mmol/L (98-107); Glucose 99 mg/dL (80-115); Potassium 4.6 mmol/L (3.5-5.1); Sodium 138 mmol/L (136-145)
[2021-12-30] MEDS: HYDROcodone/Acetaminophen 5/325 mg Tablet PO PRN ×3 (06:32→20:42)
[2021-12-30] MEDS: Digoxin 0.25 MG TAB PO SCH (08:30)
[2021-12-30] MEDS: NPH, Human Insulin Isophane 300 UNIT/3 ML VIAL SC SCH ×2 (08:30→20:51)
[2021-12-30] MEDS: Metoprolol Tartrate 25 MG TAB PO SCH ×2 (08:30→20:39)
[2021-12-30] MEDS: Furosemide 40 MG/4 ML VIAL SLOW IVP SCH (08:30)
[2021-12-30] MEDS: Gabapentin 100 MG CAP PO SCH ×3 (08:30→20:41)
[2021-12-30] MEDS: Apixaban 5 MG TAB PO SCH ×2 (08:30→20:42)
[2021-12-30] MEDS: Famotidine 20 MG TAB PO SCH ×2 (08:30→20:42)
[2021-12-30] MEDS: Senokot S 8.6-50 MG TAB PO SCH ×2 (08:31→20:42)
[2021-12-30] MEDS: Acetaminophen 325 MG TAB PO PRN (13:14)
[2021-12-30] MEDS ORDERED: Oxybutynin 5 MG TAB PO SCH (18:30)
[2021-12-30] MEDS: Trospium 20 MG TAB PO PRN (22:56)
[2021-12-31] MEDS: HYDROcodone/Acetaminophen 5/325 mg Tablet PO PRN ×4 (00:12→22:37)
[2021-12-31] MEDS: Meropenem 1 GM in Sodium Chloride 0.9% 100 ML IVPB SCH ×3 (00:13→18:49)
[2021-12-31] MEDS: Sodium Chloride 0.9% 1,000 ML IV SCH ×3 (00:14→18:49)
[2021-12-31] MEDS: Apixaban 5 MG TAB PO SCH ×2 (09:26→22:36)
[2021-12-31] MEDS: Digoxin 0.25 MG TAB PO SCH (09:27)
[2021-12-31] MEDS: Gabapentin 100 MG CAP PO SCH ×3 (09:27→22:36)
[2021-12-31] MEDS: Furosemide 40 MG/4 ML VIAL SLOW IVP SCH (09:27)
[2021-12-31] MEDS: Famotidine 20 MG TAB PO SCH ×2 (09:27→22:36)
[2021-12-31] MEDS: Metoprolol Tartrate 25 MG TAB PO SCH ×2 (09:28→22:36)
[2021-12-31] MEDS: Oxybutynin 5 MG TAB PO SCH (09:28)
[2021-12-31] MEDS: Senokot S 8.6-50 MG TAB PO SCH ×2 (09:28→22:36)
[2021-12-31] MEDS: NPH, Human Insulin Isophane 300 UNIT/3 ML VIAL SC SCH (09:28)
[2021-12-31] MEDS: Trospium 20 MG TAB PO PRN (18:49)
[2022-01-01] MEDS: NPH, Human Insulin Isophane 300 UNIT/3 ML VIAL SC SCH ×3 (01:19→20:52)
[2022-01-01] MEDS: Meropenem 1 GM in Sodium Chloride 0.9% 100 ML IVPB SCH ×3 (01:28→17:40)
[2022-01-01] MEDS: Sodium Chloride 0.9% 1,000 ML IV SCH ×3 (01:29→17:41)
[2022-01-01 05:03] LABS: #Basophils 0.1 10x3/uL (0.0-0.2); #Eosinphils 0.4 10x3/uL (0.0-0.5); #Monocytes 1.2 10x3/uL (0.0-1.1); #Neutrophils 6.3 10x3/uL (1.5-8.4); %Basophils 0.7 % (0.0-2.0); %Eosinophils 4.1 % (0.0-6.0); %Lymphocytes 20.2 % (18.0-47.0); %Monocytes 11.6 % (0.0-10.0); %Neutrophils 62.7 % (40.0-75.0); Hemoglobin 13.8 g/dL (12.0-15.5); Mean Corpuscular HGB CONC 33.2 g/dL (32.0-36.0); Mean Corpuscular Volume 81.3 fl (81.6-98.3); Mean Platelet Volume 11.2 fl (7.4-10.4); Platelet Count 247 10x3/uL (150-450); RBC Distribution Width 15.7 % (11.5-14.5); Red Blood Cell (RBC) Count 5.12 10x6/uL (3.90-5.03)
[2022-01-01 05:24] LABS: Anion Gap 15 mmol/L (10-20); BUN (Urea Nitrogen) 10 mg/dL (9.8-20.1); CRP (Inflammatory) 8.71 mg/dL (= or < 0.5); Calc. Creatinine Clearance 236 mL/min (70-130); Calcium 9.6 mg/dL (7.8-10.44); Carbon Dioxide 25 mmol/L (23-31); Chloride 101 mmol/L (98-107); Glucose 160 mg/dL (80-115); Potassium 4.2 mmol/L (3.5-5.1); Sodium 137 mmol/L (136-145)
[2022-01-01] MEDS: Digoxin 0.25 MG TAB PO SCH (10:03)
[2022-01-01] MEDS: Metoprolol Tartrate 25 MG TAB PO SCH ×2 (10:03→20:52)
[2022-01-01] MEDS: Famotidine 20 MG TAB PO SCH ×2 (10:03→20:51)
[2022-01-01] MEDS: Senokot S 8.6-50 MG TAB PO SCH ×2 (10:03→20:51)
[2022-01-01] MEDS: Gabapentin 100 MG CAP PO SCH ×3 (10:04→20:52)
[2022-01-01] MEDS: Oxybutynin 5 MG TAB PO SCH (10:05)
[2022-01-01] MEDS: Furosemide 40 MG/4 ML VIAL SLOW IVP SCH (10:05)
[2022-01-01] MEDS: Apixaban 5 MG TAB PO SCH ×2 (10:05→20:52)
[2022-01-01] MEDS: Ketorolac Tromethamine 30 MG/ML VIAL IVP PRN (10:08)
[2022-01-01] MEDS: HYDROcodone/Acetaminophen 5/325 mg Tablet PO SCH ×2 (12:40→17:39)
[2022-01-01] MEDS: HumaLOG 300 UNITS/3 ML VIAL SC PRN (12:41)
[2022-01-01 18:10] LABS: Bilirubin Neg (Negative); Blood, Urine 250 (Negative); Clarity Cloudy (Clear); Glucose, Urine (Dipstick) Normal (Negative); Ketone, Urine Negative (Negative); Leukocyte 500 (Negative); Nitrite Negative (Negative); Protein, Urine (Dipstick) 15 mg/dl (Neg-Trace); Urobilinogen Normal mg/dL (Less than 2)
[2022-01-01 18:26] LABS: Urine Culture Reflex No No
[2022-01-01 18:36] LABS: WBC/HPF 21-50 HPF (0-3)
[2022-01-01 18:37] LABS: Bacteria/HPF 3+ HPF (None Seen); Squamous Epithelial 0-3 HPF (0-3)
[2022-01-01] MEDS: Polyethylene Glycol 3350 17 GM Packet PO PRN (21:13)
[2022-01-02] MEDS: HYDROcodone/Acetaminophen 5/325 mg Tablet PO SCH ×6 (00:43→23:41)
[2022-01-02] MEDS: Meropenem 1 GM in Sodium Chloride 0.9% 100 ML IVPB SCH ×3 (00:44→17:21)
[2022-01-02] MEDS: Sodium Chloride 0.9% 1,000 ML IV SCH (08:03)
[2022-01-02] MEDS: Metoprolol Tartrate 25 MG TAB PO SCH ×2 (09:26→21:24)
[2022-01-02] MEDS: Digoxin 0.25 MG TAB PO SCH (09:26)
[2022-01-02] MEDS: Gabapentin 100 MG CAP PO SCH ×3 (09:28→21:23)
[2022-01-02] MEDS: Oxybutynin 5 MG TAB PO SCH (09:28)
[2022-01-02] MEDS: Famotidine 20 MG TAB PO SCH ×2 (09:28→21:24)
[2022-01-02] MEDS: Senokot S 8.6-50 MG TAB PO SCH ×2 (09:28→21:24)
[2022-01-02] MEDS: Apixaban 5 MG TAB PO SCH ×2 (09:28→21:24)
[2022-01-02] MEDS: Furosemide 40 MG/4 ML VIAL SLOW IVP SCH (09:29)
[2022-01-02] MEDS: NPH, Human Insulin Isophane 300 UNIT/3 ML VIAL SC SCH ×2 (09:29→21:25)
[2022-01-02] MEDS: Polyethylene Glycol 3350 17 GM Packet PO PRN (17:29)
[2022-01-03] MEDS: Meropenem 1 GM in Sodium Chloride 0.9% 100 ML IVPB SCH ×3 (00:43→16:53)
[2022-01-03 04:54] LABS: #Basophils 0.1 10x3/uL (0.0-0.2); #Eosinphils 0.6 10x3/uL (0.0-0.5); #Monocytes 1.2 10x3/uL (0.0-1.1); #Neutrophils 6.8 10x3/uL (1.5-8.4); %Basophils 0.6 % (0.0-2.0); %Eosinophils 5.4 % (0.0-6.0); %Lymphocytes 25.4 % (18.0-47.0); %Monocytes 10.2 % (0.0-10.0); %Neutrophils 57.6 % (40.0-75.0); Hemoglobin 13.2 g/dL (12.0-15.5); Mean Corpuscular HGB CONC 32.7 g/dL (32.0-36.0); Mean Corpuscular Hemoglobin 26.4 pg (27.0-33.0); Mean Corpuscular Volume 80.8 fl (81.6-98.3); Mean Platelet Volume 11.4 fl (7.4-10.4); Platelet Count 334 10x3/uL (150-450); RBC Distribution Width 15.8 % (11.5-14.5); White Blood Cell (WBC) Count 11.7 10x3/uL (3.5-10.5)
[2022-01-03 05:04] LABS: Anion Gap 12 mmol/L (10-20); BUN (Urea Nitrogen) 15 mg/dL (9.8-20.1); CRP (Inflammatory) 5.45 mg/dL (= or < 0.5); Calc. Creatinine Clearance 251 mL/min (70-130); Calcium 9.7 mg/dL (7.8-10.44); Carbon Dioxide 29 mmol/L (23-31); Chloride 102 mmol/L (98-107); Potassium 4.1 mmol/L (3.5-5.1); Sodium 139 mmol/L (136-145)
[2022-01-03 05:06] LABS: Glucose 49 mg/dL (80-115)
[2022-01-03] MEDS: HYDROcodone/Acetaminophen 5/325 mg Tablet PO SCH ×4 (05:33→23:45)
[2022-01-03] MEDS: Gabapentin 100 MG CAP PO SCH ×3 (08:56→21:10)
[2022-01-03] MEDS: Senokot S 8.6-50 MG TAB PO SCH ×2 (08:58→21:10)
[2022-01-03] MEDS: Oxybutynin 5 MG TAB PO SCH (08:58)
[2022-01-03] MEDS: Apixaban 5 MG TAB PO SCH ×2 (08:58→21:10)
[2022-01-03] MEDS: Famotidine 20 MG TAB PO SCH ×2 (08:58→21:10)
[2022-01-03] MEDS: Milk Of Magnesia 30 ML UDCUP PO PRN (08:58)
[2022-01-03] MEDS: Digoxin 0.25 MG TAB PO SCH (08:58)
[2022-01-03] MEDS: Metoprolol Tartrate 25 MG TAB PO SCH ×2 (08:58→21:10)
[2022-01-03] MEDS: Furosemide 40 MG/4 ML VIAL SLOW IVP SCH (08:58)
[2022-01-03] MEDS: NPH, Human Insulin Isophane 300 UNIT/3 ML VIAL SC SCH ×2 (08:59→21:11)
[2022-01-03] MEDS: Polyethylene Glycol 3350 17 GM Packet PO PRN (08:59)
[2022-01-04] MEDS: Meropenem 1 GM in Sodium Chloride 0.9% 100 ML IVPB SCH ×3 (01:01→17:02)
[2022-01-04 04:00] LABS: #Basophils 0.1 10x3/uL (0.0-0.2); #Eosinphils 0.5 10x3/uL (0.0-0.5); #Monocytes 0.9 10x3/uL (0.0-1.1); #Neutrophils 6.4 10x3/uL (1.5-8.4); %Basophils 0.5 % (0.0-2.0); %Eosinophils 4.4 % (0.0-6.0); %Lymphocytes 23.3 % (18.0-47.0); %Monocytes 8.8 % (0.0-10.0); %Neutrophils 62.2 % (40.0-75.0); Hemoglobin 13.1 g/dL (12.0-15.5); Mean Corpuscular HGB CONC 31.6 g/dL (32.0-36.0); Mean Corpuscular Hemoglobin 26.3 pg (27.0-33.0); Mean Corpuscular Volume 83.2 fl (81.6-98.3); Mean Platelet Volume 11.3 fl (7.4-10.4); Platelet Count 341 10x3/uL (150-450); RBC Distribution Width 15.5 % (11.5-14.5); Red Blood Cell (RBC) Count 4.99 10x6/uL (3.90-5.03); White Blood Cell (WBC) Count 10.2 10x3/uL (3.5-10.5)
[2022-01-04] MEDS: HYDROcodone/Acetaminophen 5/325 mg Tablet PO SCH ×3 (06:07→18:16)
[2022-01-04] MEDS: Digoxin 0.25 MG TAB PO SCH (09:20)
[2022-01-04] MEDS: Furosemide 40 MG/4 ML VIAL SLOW IVP SCH ×2 (09:20→15:55)
[2022-01-04] MEDS: Metoprolol Tartrate 25 MG TAB PO SCH ×2 (09:20→20:39)
[2022-01-04] MEDS: Gabapentin 100 MG CAP PO SCH ×3 (09:20→20:34)
[2022-01-04] MEDS: Apixaban 5 MG TAB PO SCH ×2 (09:20→20:40)
[2022-01-04] MEDS: Famotidine 20 MG TAB PO SCH ×2 (09:20→20:35)
[2022-01-04] MEDS: Oxybutynin 5 MG TAB PO SCH (09:20)
[2022-01-04] MEDS: Senokot S 8.6-50 MG TAB PO SCH ×2 (09:21→20:36)
[2022-01-04] MEDS ORDERED: Sodium Bicarbonate 2.5 MEQ/5 ML VIAL ONE (11:34)
[2022-01-04] MEDS: NPH, Human Insulin Isophane 300 UNIT/3 ML VIAL SC SCH ×2 (12:55→20:32)
[2022-01-04] MEDS: Ketorolac Tromethamine 30 MG/ML VIAL IVP PRN (17:01)
[2022-01-05] MEDS: Meropenem 1 GM in Sodium Chloride 0.9% 100 ML IVPB SCH ×2 (00:05→10:29)
[2022-01-05] MEDS: HYDROcodone/Acetaminophen 5/325 mg Tablet PO SCH ×3 (00:07→11:27)
[2022-01-05] MEDS ORDERED: Saccharomyces boulardii 250 MG CAP PO SCH (09:15)
[2022-01-05] MEDS ORDERED: Fluconazole 100 MG TAB PO SCH (09:15)
[2022-01-05] MEDS ORDERED: Phenazopyridine HCl 97.5 MG TABLET PO SCH ×2 (09:45→15:00)
[2022-01-05] MEDS: Apixaban 5 MG TAB PO SCH (10:13)
[2022-01-05] MEDS: Gabapentin 100 MG CAP PO SCH (10:13)
[2022-01-05] MEDS: Digoxin 0.25 MG TAB PO SCH (10:13)
[2022-01-05] MEDS: Famotidine 20 MG TAB PO SCH (10:13)
[2022-01-05] MEDS: Furosemide 40 MG/4 ML VIAL SLOW IVP SCH (10:13)
[2022-01-05] MEDS: Metoprolol Tartrate 25 MG TAB PO SCH (10:29)
[2022-01-05] MEDS: Senokot S 8.6-50 MG TAB PO SCH (10:29)
[2022-01-05] MEDS: NPH, Human Insulin Isophane 300 UNIT/3 ML VIAL SC SCH (10:29)
[2022-01-05] MEDS: Oxybutynin 5 MG TAB PO SCH (10:29)
[2022-01-05 12:23] VITALS: BP 116/63; TEMP 97.3
[2022-01-06] MEDS ORDERED: Saccharomyces boulardii 250 MG CAP PO SCH (09:00)
== END 2022-01-05 14:49 | DRG 698 ==
LOC: CSHERS 14:25 → CSHTELE 19:54
PROVIDERS: ADMIT Student in an Organized Health Care Education/Training Program; ATTEND Family Medicine
PROC: 02HV33Z Insertion of Infusion Device into Superior Vena Cava, Percutaneous Approach (ICD-10-PCS; principal; 2022-01-04)
PROC: B5181ZA Fluoroscopy of Superior Vena Cava using Low Osmolar Contrast, Guidance (ICD-10-PCS; 2022-01-04)
PROC: B548ZZA Ultrasonography of Superior Vena Cava, Guidance (ICD-10-PCS; 2022-01-04)
DX: T83.511A Infection and inflammatory reaction due to indwelling urethral catheter, initial encounter (principal); A41.50 Gram-negative sepsis, unspecified; N30.00 Acute cystitis without hematuria; K56.600 Partial intestinal obstruction, unspecified as to cause; Z68.45 Body mass index [BMI] 70 or greater, adult; J90 Pleural effusion, not elsewhere classified; K56.7 Ileus, unspecified; N13.30 Unspecified hydronephrosis; I48.20 Chronic atrial fibrillation, unspecified; G82.20 Paraplegia, unspecified; F41.9 Anxiety disorder, unspecified; I10 Essential (primary) hypertension; K59.00 Constipation, unspecified; E11.65 Type 2 diabetes mellitus with hyperglycemia; N28.1 Cyst of kidney, acquired; E87.70 Fluid overload, unspecified; K58.9 Irritable bowel syndrome, unspecified; E66.01 Morbid (severe) obesity due to excess calories; G47.33 Obstructive sleep apnea (adult) (pediatric); G25.81 Restless legs syndrome; M19.90 Unspecified osteoarthritis, unspecified site; M79.7 Fibromyalgia; E11.42 Type 2 diabetes mellitus with diabetic polyneuropathy; Z20.822 Contact with and (suspected) exposure to COVID-19; I25.10 Atherosclerotic heart disease of native coronary artery without angina pectoris; R09.02 Hypoxemia; Y84.6 Urinary catheterization as the cause of abnormal reaction of the patient, or of later complication, without mention of misadventure at the time of the procedure; I25.2 Old myocardial infarction; Z87.442 Personal history of urinary calculi; Z88.1 Allergy status to other antibiotic agents; Z88.0 Allergy status to penicillin; Z87.440 Personal history of urinary (tract) infections; Z99.81 Dependence on supplemental oxygen; Z79.01 Long term (current) use of anticoagulants; Z79.899 Other long term (current) drug therapy; Z80.8 Family history of malignant neoplasm of other organs or systems; Z79.82 Long term (current) use of aspirin; Z79.4 Long term (current) use of insulin
CPT/HCPCS: 36415; 36416; 36569; 71275; 74177; 80048; 80053; 81001; 81003; 81015; 83605; 83690; 83735; 85025; 85610; 86140; 87040; 87077; 87086; 87149; 87186; 93005; 94660; 94760; 96361; 96365; 96366; 96375; C1751; J0692; J1815; J1885; J1940; J2185; J2405; J3370; J3490; J7050; Q9967; U0003; U0005

== ENCOUNTER 2022-02-08 10:59 | Inpatient (IN) | payer MEDICARE ==
[2022-02-08 11:47] LABS: Bilirubin 3+ (Negative); Blood, Urine 25 (Negative); Clarity Cloudy (Clear); Glucose, Urine (Dipstick) Normal (Negative); Ketone, Urine Negative (Negative); Leukocyte 500 (Negative); Nitrite Positive (Negative); Protein, Urine (Dipstick) 30 mg/dl (Neg-Trace); Specific Gravity, Urine 1.015 (1.002-1.036)
[2022-02-08 11:48] LABS: #Basophils 0.1 10x3/uL (0.0-0.2); #Eosinphils 0.2 10x3/uL (0.0-0.5); #Monocytes 0.8 10x3/uL (0.0-1.1); #Neutrophils 9.6 10x3/uL (1.5-8.4); %Basophils 0.5 % (0.0-2.0); %Eosinophils 1.6 % (0.0-6.0); %Lymphocytes 13.3 % (18.0-47.0); %Monocytes 6.2 % (0.0-10.0); %Neutrophils 77.9 % (40.0-75.0); Hemoglobin 12.9 g/dL (12.0-15.5); Mean Corpuscular HGB CONC 31.8 g/dL (32.0-36.0); Mean Corpuscular Hemoglobin 26.4 pg (27.0-33.0); Mean Corpuscular Volume 83.2 fl (81.6-98.3); Mean Platelet Volume 11.4 fl (7.4-10.4); Platelet Count 269 10x3/uL (150-450); RBC Distribution Width 16.9 % (11.5-14.5); Red Blood Cell (RBC) Count 4.88 10x6/uL (3.90-5.03); White Blood Cell (WBC) Count 12.3 10x3/uL (3.5-10.5)
[2022-02-08] MEDS ORDERED: Ondansetron PF 4 MG/2 ML Vial ONE (11:48)
[2022-02-08 11:55] LABS: Squamous Epithelial 0-3 HPF (0-3); WBC/HPF 21-50 HPF (0-3)
[2022-02-08 11:56] LABS: Bacteria/HPF 2+ HPF (None Seen); Mucous/LPF 1+ LPF (<2+); Yeast-Hyphae 1+ HPF (None Seen)
[2022-02-08 12:09] LABS: ALT (SGPT) 24 U/L (8-55); AST (SGOT) 34 U/L (5-34); Albumin 3.3 g/dL (3.4-4.8); Alkaline Phosphatase 79 U/L (40-110); Anion Gap 13 mmol/L (10-20); BUN (Urea Nitrogen) 12 mg/dL (9.8-20.1); Bilirubin, Total 0.7 mg/dL (0.2-1.2); Calc. Creatinine Clearance 0 mL/min (70-130); Calcium 10.5 mg/dL (7.8-10.44); Carbon Dioxide 25 mmol/L (23-31); Chloride 104 mmol/L (98-107); Estimated GFR 82; Globulin 3.5 g/dL (2.4-3.5); Glucose 210 mg/dL (80-115); Lipase 24 U/L (8-78); Potassium 5.2 mmol/L (3.5-5.1); Protein, Total 6.8 g/dL (5.8-8.1); Sodium 137 mmol/L (136-145)
[2022-02-08] MEDS ORDERED: Iopamidol 300 61% 100 ML VIAL FS ONE (12:47)
[2022-02-08] MEDS ORDERED: Meropenem 2 GM in Sodium Chloride 0.9% 100 ML IVPB SCH (13:15)
[2022-02-08 16:44] VITALS: BMI 62.4
[2022-02-08] MEDS ORDERED: Ondansetron ODT 4 MG TAB PO PRN (17:07)
[2022-02-08] MEDS ORDERED: Sodium Chloride 0.9% 1,000 ML IV SCH (17:15)
[2022-02-08] MEDS ORDERED: Dextrose 5% in Water 1,000 ML IV PRN (17:19)
[2022-02-08] MEDS ORDERED: Dextrose 50% Abboject 50 ML SYRINGE SLOW IVP PRN (17:19)
[2022-02-08] MEDS ORDERED: [UNRECOGNIZED DRUG - OTHER] PO PRN (17:20)
[2022-02-08] MEDS ORDERED: Milk Of Magnesia 30 ML UDCUP PO PRN (17:20)
[2022-02-08] MEDS ORDERED: Melatonin 3 MG TAB PO PRN (17:20)
[2022-02-08] MEDS ORDERED: Electrolyte Replacement Protocol FS PRN (17:30)
[2022-02-08] MEDS ORDERED: VANCOMYCIN 1.75 GM/350 ML BAG 1.75 GM in Premix Bag 1 BAG IVPB SCH (20:00)
[2022-02-08] MEDS: VANCOMYCIN 1.25 GM/250 ML BAG 1.25 GM in Premix Bag 1 BAG IVPB SCH (20:01)
[2022-02-08] MEDS ORDERED: Sodium Chloride 0.9% 100 ML ONE (20:58)
[2022-02-08] MEDS ORDERED: Meropenem 1 GM VIAL ONE (21:00)
[2022-02-08] MEDS: Meropenem 1 GM in Sodium Chloride 0.9% 100 ML IVPB SCH (21:20)
[2022-02-08] MEDS: Apixaban 5 MG TAB PO SCH (21:21)
[2022-02-08] MEDS: Metoprolol Tartrate 25 MG TAB PO SCH (21:21)
[2022-02-08] MEDS: Gabapentin 100 MG CAP PO SCH (21:21)
[2022-02-08] MEDS ORDERED: Meropenem 1 GM in Sodium Chloride 0.9% 100 ML IVPB SCH (22:00)
[2022-02-08] MEDS: Acetaminophen 325 MG TAB PO PRN (22:09)
[2022-02-08] MEDS: HumaLOG 300 UNITS/3 ML VIAL SC PRN (22:10)
[2022-02-09] MEDS: Meropenem 1 GM in Sodium Chloride 0.9% 100 ML IVPB SCH ×4 (04:35→23:21)
[2022-02-09 05:00] LABS: #Basophils 0.1 10x3/uL (0.0-0.2); #Eosinphils 0.5 10x3/uL (0.0-0.5); #Monocytes 1.1 10x3/uL (0.0-1.1); #Neutrophils 6.4 10x3/uL (1.5-8.4); %Basophils 0.9 % (0.0-2.0); %Eosinophils 4.4 % (0.0-6.0); %Monocytes 10.8 % (0.0-10.0); %Neutrophils 61.4 % (40.0-75.0); Hemoglobin 12.3 g/dL (12.0-15.5); Mean Corpuscular HGB CONC 31.4 g/dL (32.0-36.0); Mean Corpuscular Hemoglobin 26.2 pg (27.0-33.0); Mean Corpuscular Volume 83.4 fl (81.6-98.3); Mean Platelet Volume 11.3 fl (7.4-10.4); Platelet Count 289 10x3/uL (150-450); RBC Distribution Width 17.2 % (11.5-14.5); White Blood Cell (WBC) Count 10.3 10x3/uL (3.5-10.5)
[2022-02-09 05:13] LABS: Anion Gap 11 mmol/L (10-20); BUN (Urea Nitrogen) 12 mg/dL (9.8-20.1); Calc. Creatinine Clearance 151 mL/min (70-130); Calcium 9.6 mg/dL (7.8-10.44); Carbon Dioxide 27 mmol/L (23-31); Chloride 107 mmol/L (98-107); Estimated GFR 77; Glucose 159 mg/dL (80-115); Magnesium 1.6 mg/dL (1.6-2.6); Potassium 4.5 mmol/L (3.5-5.1); Sodium 140 mmol/L (136-145)
[2022-02-09] MEDS ORDERED: Magnesium 2 GM/50 ML(in water) 2 GM in Premix Bag 1 BAG IVPB SCH (05:30)
[2022-02-09] MEDS: Polyethylene Glycol 3350 17 GM Packet PO PRN (08:42)
[2022-02-09] MEDS: Senokot 8.6 MG TAB PO PRN (08:42)
[2022-02-09] MEDS: Digoxin 0.25 MG TAB PO SCH (08:43)
[2022-02-09] MEDS: Apixaban 5 MG TAB PO SCH ×2 (08:43→21:03)
[2022-02-09] MEDS: Saccharomyces boulardii 250 MG CAP PO SCH ×2 (08:43→21:04)
[2022-02-09] MEDS: Metoprolol Tartrate 25 MG TAB PO SCH ×2 (08:43→21:03)
[2022-02-09] MEDS: Multivit, Therapeutic 1 TAB PO SCH (08:43)
[2022-02-09] MEDS: Gabapentin 100 MG CAP PO SCH ×3 (08:43→21:03)
[2022-02-09] MEDS: Acetaminophen 325 MG TAB PO PRN ×2 (10:25→21:09)
[2022-02-09] MEDS: HumaLOG 300 UNITS/3 ML VIAL SC PRN ×3 (12:07→21:12)
[2022-02-09] MEDS: Meclizine HCl 25 MG TAB PO PRN (18:14)
[2022-02-09] MEDS: VANCOMYCIN 1.25 GM/250 ML BAG 1.25 GM in Premix Bag 1 BAG IVPB SCH (21:10)
[2022-02-10 04:43] LABS: #Basophils 0.1 10x3/uL (0.0-0.2); #Eosinphils 0.4 10x3/uL (0.0-0.5); #Neutrophils 6.8 10x3/uL (1.5-8.4); %Basophils 0.9 % (0.0-2.0); %Eosinophils 4.2 % (0.0-6.0); %Lymphocytes 18.1 % (18.0-47.0); %Monocytes 10.1 % (0.0-10.0); %Neutrophils 66.3 % (40.0-75.0); Hemoglobin 12.8 g/dL (12.0-15.5); Mean Corpuscular HGB CONC 30.2 g/dL (32.0-36.0); Mean Corpuscular Hemoglobin 26.3 pg (27.0-33.0); Mean Corpuscular Volume 87.2 fl (81.6-98.3); Mean Platelet Volume 11.1 fl (7.4-10.4); Platelet Count 271 10x3/uL (150-450); RBC Distribution Width 17.3 % (11.5-14.5); Red Blood Cell (RBC) Count 4.86 10x6/uL (3.90-5.03); White Blood Cell (WBC) Count 10.3 10x3/uL (3.5-10.5)
[2022-02-10 04:44] LABS: Anion Gap 11 mmol/L (10-20); BUN (Urea Nitrogen) 13 mg/dL (9.8-20.1); Calc. Creatinine Clearance 167 mL/min (70-130); Calcium 9.6 mg/dL (7.8-10.44); Carbon Dioxide 25 mmol/L (23-31); Chloride 106 mmol/L (98-107); Estimated GFR 86; Glucose 185 mg/dL (80-115); Potassium 4.6 mmol/L (3.5-5.1); Sodium 137 mmol/L (136-145)
[2022-02-10] MEDS: Meropenem 1 GM in Sodium Chloride 0.9% 100 ML IVPB SCH ×3 (06:35→23:32)
[2022-02-10] MEDS: HumaLOG 300 UNITS/3 ML VIAL SC PRN ×4 (06:36→21:21)
[2022-02-10 08:54] LABS: Vancomycin, Trough 12.1 ug/mL
[2022-02-10] MEDS: Apixaban 5 MG TAB PO SCH ×2 (09:48→21:19)
[2022-02-10] MEDS: Gabapentin 100 MG CAP PO SCH ×3 (09:48→21:19)
[2022-02-10] MEDS: Saccharomyces boulardii 250 MG CAP PO SCH (09:48)
[2022-02-10] MEDS: Digoxin 0.25 MG TAB PO SCH (09:49)
[2022-02-10] MEDS: Vancomycin 1.5 GRAM/300 ML BAG 1.5 GM in Premix Bag 1 BAG IVPB SCH ×2 (09:49→21:19)
[2022-02-10] MEDS: Multivit, Therapeutic 1 TAB PO SCH (09:49)
[2022-02-10] MEDS: Metoprolol Tartrate 25 MG TAB PO SCH ×2 (09:49→21:19)
[2022-02-10] MEDS ORDERED: Lorazepam 2 MG/ML VIAL SLOW IVP PRN (11:15)
[2022-02-10] MEDS: Acetaminophen 325 MG TAB PO PRN ×3 (12:51→23:57)
[2022-02-10] MEDS: Polyethylene Glycol 3350 17 GM Packet PO PRN (12:52)
[2022-02-10] MEDS: Meclizine HCl 25 MG TAB PO PRN (12:52)
[2022-02-11] MEDS: HumaLOG 300 UNITS/3 ML VIAL SC PRN ×4 (05:38→21:43)
[2022-02-11] MEDS: Meropenem 1 GM in Sodium Chloride 0.9% 100 ML IVPB SCH ×2 (06:21→16:10)
[2022-02-11] MEDS: Metoprolol Tartrate 25 MG TAB PO SCH ×2 (08:49→21:41)
[2022-02-11] MEDS: Digoxin 0.25 MG TAB PO SCH (08:49)
[2022-02-11] MEDS: Apixaban 5 MG TAB PO SCH ×2 (08:50→21:40)
[2022-02-11] MEDS: Saccharomyces boulardii 250 MG CAP PO SCH (08:50)
[2022-02-11] MEDS: Gabapentin 100 MG CAP PO SCH ×3 (08:50→21:41)
[2022-02-11] MEDS: Multivit, Therapeutic 1 TAB PO SCH (08:50)
[2022-02-11] MEDS: Vancomycin 1.5 GRAM/300 ML BAG 1.5 GM in Premix Bag 1 BAG IVPB SCH ×2 (09:36→21:44)
[2022-02-11] MEDS: Acetaminophen 325 MG TAB PO PRN ×2 (16:09→21:44)
[2022-02-11] MEDS: Meclizine HCl 25 MG TAB PO PRN (18:01)
[2022-02-11 20:36] LABS: Vancomycin, Trough 24.3 ug/mL
[2022-02-12] MEDS: Meropenem 1 GM in Sodium Chloride 0.9% 100 ML IVPB SCH ×3 (00:26→16:57)
[2022-02-12] MEDS: HumaLOG 300 UNITS/3 ML VIAL SC PRN ×4 (06:28→22:25)
[2022-02-12] MEDS: Saccharomyces boulardii 250 MG CAP PO SCH (09:58)
[2022-02-12] MEDS: Apixaban 5 MG TAB PO SCH ×2 (09:58→22:11)
[2022-02-12] MEDS: Multivit, Therapeutic 1 TAB PO SCH (09:58)
[2022-02-12] MEDS: Digoxin 0.25 MG TAB PO SCH (09:59)
[2022-02-12] MEDS: Metoprolol Tartrate 25 MG TAB PO SCH ×2 (09:59→22:12)
[2022-02-12] MEDS: Gabapentin 100 MG CAP PO SCH ×3 (10:00→22:11)
[2022-02-12] MEDS: Acetaminophen 325 MG TAB PO PRN ×3 (10:11→22:19)
[2022-02-12] MEDS: Senokot 8.6 MG TAB PO PRN (12:19)
[2022-02-12] MEDS: Polyethylene Glycol 3350 17 GM Packet PO PRN (12:19)
[2022-02-12] MEDS: VANCOMYCIN 1.25 GM/250 ML BAG 1.25 GM in Premix Bag 1 BAG IVPB SCH (22:12)
[2022-02-13] MEDS: Meropenem 1 GM in Sodium Chloride 0.9% 100 ML IVPB SCH ×2 (00:07→06:39)
[2022-02-13] MEDS: HumaLOG 300 UNITS/3 ML VIAL SC PRN ×4 (06:40→20:29)
[2022-02-13] MEDS: Acetaminophen 325 MG TAB PO PRN (06:42)
[2022-02-13] MEDS: Multivit, Therapeutic 1 TAB PO SCH (09:20)
[2022-02-13] MEDS: VANCOMYCIN 1.25 GM/250 ML BAG 1.25 GM in Premix Bag 1 BAG IVPB SCH (09:20)
[2022-02-13] MEDS: Digoxin 0.25 MG TAB PO SCH (09:20)
[2022-02-13] MEDS: Metoprolol Tartrate 25 MG TAB PO SCH ×2 (09:20→20:28)
[2022-02-13] MEDS: Apixaban 5 MG TAB PO SCH ×2 (09:20→20:28)
[2022-02-13] MEDS: Gabapentin 100 MG CAP PO SCH ×3 (09:20→20:28)
[2022-02-13] MEDS: Saccharomyces boulardii 250 MG CAP PO SCH (09:20)
[2022-02-13] MEDS: cefTRIAXone\\ROCEPHIN 2 GM in Sodium Chloride 0.9% 100 ML IVPB SCH (13:31)
[2022-02-13] MEDS: Linezolid 600 MG in Premix Bag 1 BAG IVPB SCH (13:32)
[2022-02-13] MEDS: Polyethylene Glycol 3350 17 GM Packet PO PRN (17:25)
[2022-02-13] MEDS: Senokot 8.6 MG TAB PO PRN (17:26)
[2022-02-13 20:32] LABS: Vancomycin, Trough 15.1 ug/mL
[2022-02-14] MEDS: Linezolid 600 MG in Premix Bag 1 BAG IVPB SCH ×2 (01:05→13:59)
[2022-02-14 06:00] LABS: Anion Gap 15 mmol/L (10-20); BUN (Urea Nitrogen) 14 mg/dL (9.8-20.1); Calc. Creatinine Clearance 189 mL/min (70-130); Calcium 10.1 mg/dL (7.8-10.44); Carbon Dioxide 21 mmol/L (23-31); Chloride 103 mmol/L (98-107); Estimated GFR 96; Glucose 277 mg/dL (80-115); Potassium 4.2 mmol/L (3.5-5.1); Sodium 135 mmol/L (136-145)
[2022-02-14 06:01] LABS: #Basophils 0.1 10x3/uL (0.0-0.2); #Eosinphils 0.4 10x3/uL (0.0-0.5); #Monocytes 0.8 10x3/uL (0.0-1.1); #Neutrophils 6.1 10x3/uL (1.5-8.4); %Basophils 0.6 % (0.0-2.0); %Eosinophils 4.2 % (0.0-6.0); %Lymphocytes 22.1 % (18.0-47.0); %Monocytes 7.9 % (0.0-10.0); %Neutrophils 64.9 % (40.0-75.0); Hemoglobin 12.8 g/dL (12.0-15.5); Mean Corpuscular HGB CONC 32.5 g/dL (32.0-36.0); Mean Corpuscular Hemoglobin 26.6 pg (27.0-33.0); Mean Corpuscular Volume 81.9 fl (81.6-98.3); Mean Platelet Volume 11.4 fl (7.4-10.4); Platelet Count 331 10x3/uL (150-450); Red Blood Cell (RBC) Count 4.81 10x6/uL (3.90-5.03); White Blood Cell (WBC) Count 9.4 10x3/uL (3.5-10.5)
[2022-02-14] MEDS: HumaLOG 300 UNITS/3 ML VIAL SC PRN ×4 (06:16→20:41)
[2022-02-14] MEDS: Gabapentin 100 MG CAP PO SCH ×3 (08:53→20:24)
[2022-02-14] MEDS: Apixaban 5 MG TAB PO SCH ×2 (08:53→20:24)
[2022-02-14] MEDS: Digoxin 0.25 MG TAB PO SCH (08:53)
[2022-02-14] MEDS: Multivit, Therapeutic 1 TAB PO SCH (08:53)
[2022-02-14] MEDS: Metoprolol Tartrate 25 MG TAB PO SCH ×2 (08:54→20:24)
[2022-02-14] MEDS: Saccharomyces boulardii 250 MG CAP PO SCH (08:54)
[2022-02-14] MEDS: Polyethylene Glycol 3350 17 GM Packet PO SCH (08:54)
[2022-02-14] MEDS: Acetaminophen/Codeine 30-300mg Tablet PO PRN (11:52)
[2022-02-14] MEDS: cefTRIAXone\\ROCEPHIN 2 GM in Sodium Chloride 0.9% 100 ML IVPB SCH (13:59)
[2022-02-14] MEDS: Acetaminophen 325 MG TAB PO PRN (20:23)
[2022-02-15] MEDS: Linezolid 600 MG in Premix Bag 1 BAG IVPB SCH ×2 (01:57→13:47)
[2022-02-15 04:56] LABS: #Basophils 0.1 10x3/uL (0.0-0.2); #Eosinphils 0.4 10x3/uL (0.0-0.5); #Monocytes 0.7 10x3/uL (0.0-1.1); #Neutrophils 5.9 10x3/uL (1.5-8.4); %Basophils 0.7 % (0.0-2.0); %Eosinophils 4.6 % (0.0-6.0); %Monocytes 7.2 % (0.0-10.0); %Neutrophils 63.3 % (40.0-75.0); Hemoglobin 12.4 g/dL (12.0-15.5); Mean Corpuscular HGB CONC 32.1 g/dL (32.0-36.0); Mean Corpuscular Hemoglobin 26.5 pg (27.0-33.0); Mean Corpuscular Volume 82.5 fl (81.6-98.3); Mean Platelet Volume 11.3 fl (7.4-10.4); Platelet Count 323 10x3/uL (150-450); RBC Distribution Width 17.1 % (11.5-14.5); Red Blood Cell (RBC) Count 4.68 10x6/uL (3.90-5.03); White Blood Cell (WBC) Count 9.2 10x3/uL (3.5-10.5)
[2022-02-15 05:01] LABS: Anion Gap 13 mmol/L (10-20); BUN (Urea Nitrogen) 15 mg/dL (9.8-20.1); Calc. Creatinine Clearance 181 mL/min (70-130); Calcium 9.9 mg/dL (7.8-10.44); Carbon Dioxide 23 mmol/L (23-31); Chloride 104 mmol/L (98-107); Estimated GFR 95; Glucose 281 mg/dL (80-115); Potassium 4.2 mmol/L (3.5-5.1); Sodium 136 mmol/L (136-145)
[2022-02-15] MEDS: HumaLOG 300 UNITS/3 ML VIAL SC PRN ×4 (06:46→21:35)
[2022-02-15 07:27] LABS: SARS-CoV-2 NAA Rapid Test Not Detected (NotDetected)
[2022-02-15] MEDS: Polyethylene Glycol 3350 17 GM Packet PO SCH (08:48)
[2022-02-15] MEDS: Apixaban 5 MG TAB PO SCH ×2 (08:48→21:37)
[2022-02-15] MEDS: Multivit, Therapeutic 1 TAB PO SCH (08:51)
[2022-02-15] MEDS: Metoprolol Tartrate 25 MG TAB PO SCH ×2 (08:51→21:36)
[2022-02-15] MEDS: Gabapentin 100 MG CAP PO SCH ×3 (08:51→21:36)
[2022-02-15] MEDS: Saccharomyces boulardii 250 MG CAP PO SCH (08:51)
[2022-02-15] MEDS: Digoxin 0.25 MG TAB PO SCH (08:51)
[2022-02-15] MEDS ORDERED: Lidocaine 1% PF 5 ML VIAL ONE (09:03)
[2022-02-15] MEDS ORDERED: Sodium Bicarbonate 2.5 MEQ/5 ML VIAL ONE (09:03)
[2022-02-15] MEDS: cefTRIAXone\\ROCEPHIN 2 GM in Sodium Chloride 0.9% 100 ML IVPB SCH (13:48)
[2022-02-15] MEDS ORDERED: Nystatin Powder 15 GM BOT TOP PRN (18:21)
[2022-02-15] MEDS ORDERED: Hydrocortisone 1% Cream 30 GM TUBE TOP PRN (18:21)
[2022-02-15] MEDS ORDERED: Artificial Tear Sol 15 ML BOT EA EYE PRN (18:21)
[2022-02-15] MEDS ORDERED: NPH, Human Insulin Isophane 300 UNIT/3 ML VIAL SC SCH ×2 (21:00)
[2022-02-15] MEDS: Acetaminophen 325 MG TAB PO PRN (21:41)
[2022-02-16] MEDS: Linezolid 600 MG in Premix Bag 1 BAG IVPB SCH ×2 (02:19→13:14)
[2022-02-16 04:14] LABS: #Basophils 0.1 10x3/uL (0.0-0.2); #Eosinphils 0.5 10x3/uL (0.0-0.5); #Monocytes 0.7 10x3/uL (0.0-1.1); #Neutrophils 5.7 10x3/uL (1.5-8.4); %Basophils 0.7 % (0.0-2.0); %Eosinophils 4.9 % (0.0-6.0); %Lymphocytes 26.7 % (18.0-47.0); %Monocytes 7.8 % (0.0-10.0); %Neutrophils 59.5 % (40.0-75.0); Hemoglobin 12.2 g/dL (12.0-15.5); Mean Corpuscular HGB CONC 32.3 g/dL (32.0-36.0); Mean Corpuscular Hemoglobin 26.4 pg (27.0-33.0); Mean Corpuscular Volume 81.8 fl (81.6-98.3); Mean Platelet Volume 11.2 fl (7.4-10.4); Platelet Count 329 10x3/uL (150-450); RBC Distribution Width 17.2 % (11.5-14.5); Red Blood Cell (RBC) Count 4.62 10x6/uL (3.90-5.03); White Blood Cell (WBC) Count 9.5 10x3/uL (3.5-10.5)
[2022-02-16 04:44] LABS: Anion Gap 12 mmol/L (10-20); BUN (Urea Nitrogen) 13 mg/dL (9.8-20.1); Calc. Creatinine Clearance 144 mL/min (70-130); Calcium 9.8 mg/dL (7.8-10.44); Carbon Dioxide 26 mmol/L (23-31); Chloride 103 mmol/L (98-107); Estimated GFR 72; Glucose 263 mg/dL (80-115); Sodium 137 mmol/L (136-145)
[2022-02-16] MEDS: Acetaminophen 325 MG TAB PO PRN ×2 (05:22→21:57)
[2022-02-16] MEDS: HumaLOG 300 UNITS/3 ML VIAL SC PRN ×3 (05:23→17:19)
[2022-02-16] MEDS ORDERED: NPH, Human Insulin Isophane 300 UNIT/3 ML VIAL SC SCH (09:00)
[2022-02-16] MEDS: Apixaban 5 MG TAB PO SCH ×2 (09:36→21:57)
[2022-02-16] MEDS: Saccharomyces boulardii 250 MG CAP PO SCH (09:36)
[2022-02-16] MEDS: Gabapentin 100 MG CAP PO SCH ×3 (09:36→21:57)
[2022-02-16] MEDS: Digoxin 0.25 MG TAB PO SCH (09:37)
[2022-02-16] MEDS: Polyethylene Glycol 3350 17 GM Packet PO SCH (09:37)
[2022-02-16] MEDS: Metoprolol Tartrate 25 MG TAB PO SCH ×2 (09:37→21:58)
[2022-02-16] MEDS: Multivit, Therapeutic 1 TAB PO SCH (09:37)
[2022-02-16] MEDS: cefTRIAXone\\ROCEPHIN 2 GM in Sodium Chloride 0.9% 100 ML IVPB SCH (13:14)
[2022-02-16] MEDS ORDERED: Dextrose 50% Abboject 50 ML SYRINGE SLOW IVP PRN (15:16)
[2022-02-16] MEDS ORDERED: Dextrose 5% in Water 1,000 ML IV PRN (15:16)
[2022-02-16] MEDS: Acetaminophen/Codeine 30-300mg Tablet PO PRN (17:17)
[2022-02-16] MEDS: HumuLIN 70/30 (300 UNITS/3 ML VIAL) SC SCH (22:01)
[2022-02-17] MEDS: Linezolid 600 MG in Premix Bag 1 BAG IVPB SCH ×2 (01:35→14:50)
[2022-02-17 06:03] LABS: Anion Gap 14 mmol/L (10-20); BUN (Urea Nitrogen) 14 mg/dL (9.8-20.1); Calc. Creatinine Clearance 169 mL/min (70-130); Carbon Dioxide 24 mmol/L (23-31); Chloride 104 mmol/L (98-107); Estimated GFR 88; Glucose 210 mg/dL (80-115); Potassium 4.2 mmol/L (3.5-5.1); Sodium 138 mmol/L (136-145)
[2022-02-17] MEDS: HumaLOG 300 UNITS/3 ML VIAL SC PRN ×2 (06:23→22:09)
[2022-02-17] MEDS: Acetaminophen 325 MG TAB PO PRN ×2 (06:33→18:02)
[2022-02-17 08:03] LABS: #Basophils 0.1 10x3/uL (0.0-0.2); #Eosinphils 0.6 10x3/uL (0.0-0.5); #Monocytes 0.7 10x3/uL (0.0-1.1); #Neutrophils 5.9 10x3/uL (1.5-8.4); %Basophils 0.8 % (0.0-2.0); %Eosinophils 5.6 % (0.0-6.0); %Lymphocytes 25.2 % (18.0-47.0); %Monocytes 7.4 % (0.0-10.0); %Neutrophils 60.7 % (40.0-75.0); Mean Corpuscular HGB CONC 32.4 g/dL (32.0-36.0); Mean Corpuscular Hemoglobin 26.4 pg (27.0-33.0); Mean Corpuscular Volume 81.5 fl (81.6-98.3); Mean Platelet Volume 11.2 fl (7.4-10.4); Platelet Count 334 10x3/uL (150-450); RBC Distribution Width 17.2 % (11.5-14.5); Red Blood Cell (RBC) Count 4.92 10x6/uL (3.90-5.03); White Blood Cell (WBC) Count 9.8 10x3/uL (3.5-10.5)
[2022-02-17] MEDS: Apixaban 5 MG TAB PO SCH ×2 (09:30→22:04)
[2022-02-17] MEDS: Gabapentin 100 MG CAP PO SCH ×3 (09:30→22:05)
[2022-02-17] MEDS: Saccharomyces boulardii 250 MG CAP PO SCH (09:31)
[2022-02-17] MEDS: Digoxin 0.25 MG TAB PO SCH (09:31)
[2022-02-17] MEDS: Metoprolol Tartrate 25 MG TAB PO SCH ×2 (09:31→22:04)
[2022-02-17] MEDS: Multivit, Therapeutic 1 TAB PO SCH (09:31)
[2022-02-17] MEDS: Polyethylene Glycol 3350 17 GM Packet PO SCH (09:31)
[2022-02-17] MEDS: HumuLIN 70/30 (300 UNITS/3 ML VIAL) SC SCH ×2 (09:32→22:07)
[2022-02-17] MEDS: cefTRIAXone\\ROCEPHIN 2 GM in Sodium Chloride 0.9% 100 ML IVPB SCH (14:44)
[2022-02-17] MEDS ORDERED: Acetaminophen 500 MG TAB PO PRN (14:58)
[2022-02-17] MEDS ORDERED: hydrALAZINE 20 MG/ML VIAL SLOW IVP PRN (14:58)
[2022-02-17] MEDS ORDERED: Loperamide HCl 2 MG CAP PO PRN ×2 (14:58)
[2022-02-17] MEDS ORDERED: Calcium Carbonate 500 MG ChewTAB PO PRN (14:58)
[2022-02-17] MEDS ORDERED: diphenhydrAMINE 25 MG CAP PO PRN (14:58)
[2022-02-17] MEDS ORDERED: Loratadine 10 MG TAB PO PRN (14:58)
[2022-02-17] MEDS ORDERED: Benzonatate 100 MG CAP PO PRN (14:58)
[2022-02-17] MEDS ORDERED: Labetalol HCl 100 MG/20 ML VIAL SLOW IVP PRN (14:58)
[2022-02-17] MEDS ORDERED: Sodium Chloride 0.65% Nasal 44 ML BOT EA NARE PRN (14:58)
[2022-02-17] MEDS ORDERED: Moisturizing Cream (Eucerin) 113 GM JAR TOP PRN (14:58)
[2022-02-17] MEDS ORDERED: Cepastat Lozenges 1 LOZ PO PRN (14:58)
[2022-02-18] MEDS: Linezolid 600 MG in Premix Bag 1 BAG IVPB SCH ×2 (02:44→14:35)
[2022-02-18] MEDS: HumaLOG 300 UNITS/3 ML VIAL SC PRN ×2 (06:43→13:26)
[2022-02-18] MEDS ORDERED: Fluticasone Propionate Nasal Spray 16 gm Bottle NASAL SCH (09:00)
[2022-02-18] MEDS: Saccharomyces boulardii 250 MG CAP PO SCH (09:32)
[2022-02-18] MEDS: Apixaban 5 MG TAB PO SCH (09:32)
[2022-02-18] MEDS: Gabapentin 100 MG CAP PO SCH ×2 (09:32→14:35)
[2022-02-18] MEDS: Multivit, Therapeutic 1 TAB PO SCH (09:32)
[2022-02-18] MEDS: Digoxin 0.25 MG TAB PO SCH (09:32)
[2022-02-18] MEDS: Metoprolol Tartrate 25 MG TAB PO SCH (09:32)
[2022-02-18] MEDS: HumuLIN 70/30 (300 UNITS/3 ML VIAL) SC SCH (09:33)
[2022-02-18] MEDS: Polyethylene Glycol 3350 17 GM Packet PO SCH (09:33)
[2022-02-18] MEDS: Senokot 8.6 MG TAB PO PRN (09:37)
[2022-02-18 12:19] VITALS: BP 137/79; TEMP 97
[2022-02-18] MEDS: cefTRIAXone\\ROCEPHIN 2 GM in Sodium Chloride 0.9% 100 ML IVPB SCH (13:27)
== END 2022-02-18 16:40 | DRG 872 ==
LOC: CSHERS 10:59 → CSHTELE 14:51
PROVIDERS: ADMIT Internal Medicine; ATTEND Family Medicine
PROC: 02HV33Z Insertion of Infusion Device into Superior Vena Cava, Percutaneous Approach (ICD-10-PCS; principal; 2022-02-15)
PROC: B548ZZA Ultrasonography of Superior Vena Cava, Guidance (ICD-10-PCS; 2022-02-15)
PROC: B5181ZA Fluoroscopy of Superior Vena Cava using Low Osmolar Contrast, Guidance (ICD-10-PCS; 2022-02-15)
DX: A41.81 Sepsis due to Enterococcus (principal); N13.6 Pyonephrosis; M46.24 Osteomyelitis of vertebra, thoracic region; I48.20 Chronic atrial fibrillation, unspecified; Z68.44 Body mass index [BMI] 60.0-69.9, adult; Z16.21 Resistance to vancomycin; G82.20 Paraplegia, unspecified; K59.00 Constipation, unspecified; G47.33 Obstructive sleep apnea (adult) (pediatric); I25.10 Atherosclerotic heart disease of native coronary artery without angina pectoris; F41.9 Anxiety disorder, unspecified; H55.00 Unspecified nystagmus; G25.81 Restless legs syndrome; E66.01 Morbid (severe) obesity due to excess calories; M79.7 Fibromyalgia; N18.9 Chronic kidney disease, unspecified; M19.90 Unspecified osteoarthritis, unspecified site; E11.22 Type 2 diabetes mellitus with diabetic chronic kidney disease; N28.89 Other specified disorders of kidney and ureter; K58.1 Irritable bowel syndrome with constipation; R42 Dizziness and giddiness; Z20.822 Contact with and (suspected) exposure to COVID-19; J45.909 Unspecified asthma, uncomplicated; E11.40 Type 2 diabetes mellitus with diabetic neuropathy, unspecified; J32.9 Chronic sinusitis, unspecified; B96.4 Proteus (mirabilis) (morganii) as the cause of diseases classified elsewhere; B96.1 Klebsiella pneumoniae [K. pneumoniae] as the cause of diseases classified elsewhere; M46.47 Discitis, unspecified, lumbosacral region; I25.2 Old myocardial infarction; Z88.0 Allergy status to penicillin; Z79.01 Long term (current) use of anticoagulants; Z79.899 Other long term (current) drug therapy; Z79.4 Long term (current) use of insulin; Z98.890 Other specified postprocedural states; Z87.440 Personal history of urinary (tract) infections; Z87.442 Personal history of urinary calculi; Z88.1 Allergy status to other antibiotic agents
CPT/HCPCS: 36415; 36416; 36569; 51701; 74177; 80048; 80053; 80202; 81003; 81015; 82565; 83605; 83690; 83735; 84100; 84520; 85025; 87040; 87077; 87086; 87186; 94660; 94760; 96374; 96375; C1751; J0696; J1815; J2020; J2185; J2405; J3370; J3475; J3490; J7050; Q9967; U0002

== ENCOUNTER 2022-03-28 14:14 | Inpatient (IN) | payer MEDICARE ==
[~2022-03-28 14:14] MED LIST changes: +Iopamidol 300 61% 100 ML VIAL FS ONE; -Iopamidol 370 76% 100 ML VIAL ONE
[2022-03-28 15:14] LABS: #Basophils 0.1 10x3/uL (0.0-0.2); #Eosinphils 0.3 10x3/uL (0.0-0.5); #Monocytes 0.9 10x3/uL (0.0-1.1); #Neutrophils 7.4 10x3/uL (1.5-8.4); %Basophils 0.5 % (0.0-2.0); %Eosinophils 2.5 % (0.0-6.0); %Lymphocytes 16.4 % (18.0-47.0); %Monocytes 8.2 % (0.0-10.0); %Neutrophils 72.1 % (40.0-75.0); Hemoglobin 10.4 g/dL (12.0-15.5); Mean Corpuscular HGB CONC 30.6 g/dL (32.0-36.0); Mean Corpuscular Volume 88.3 fl (81.6-98.3); Mean Platelet Volume 10.8 fl (7.4-10.4); Platelet Count 278 10x3/uL (150-450); RBC Distribution Width 19.9 % (11.5-14.5); Red Blood Cell (RBC) Count 3.85 10x6/uL (3.90-5.03); White Blood Cell (WBC) Count 10.3 10x3/uL (3.5-10.5)
[2022-03-28 15:32] LABS: ALT (SGPT) 10 U/L (8-55); AST (SGOT) 14 U/L (5-34); Albumin 3.6 g/dL (3.4-4.8); Alkaline Phosphatase 74 U/L (40-110); Anion Gap 15 mmol/L (10-20); BUN (Urea Nitrogen) 17 mg/dL (9.8-20.1); Bilirubin, Total 0.5 mg/dL (0.2-1.2); CRP (Inflammatory) 1.38 mg/dL (= or < 0.5); Calc. Creatinine Clearance 0 mL/min (70-130); Calcium 10.1 mg/dL (7.8-10.44); Carbon Dioxide 23 mmol/L (23-31); Chloride 105 mmol/L (98-107); Estimated GFR 67; Globulin 2.5 g/dL (2.4-3.5); Glucose 206 mg/dL (80-115); Potassium 5.1 mmol/L (3.5-5.1); Protein, Total 6.1 g/dL (5.8-8.1); Sodium 138 mmol/L (136-145)
[2022-03-28 16:19] LABS: Digoxin 0.87 ng/mL (0.8-2.0)
[2022-03-28] MEDS ORDERED: cefTRIAXone\\ROCEPHIN 2 GM VIAL ONE (16:28)
[2022-03-28] MEDS ORDERED: Linezolid 600 MG in Premix Bag 1 BAG IVPB ONE (16:30)
[2022-03-28 16:57] LABS: Bilirubin 1+ (Negative); Blood, Urine 250 (Negative); Clarity Slightly Cloudy (Clear); Glucose, Urine (Dipstick) Normal (Negative); Ketone, Urine Negative (Negative); Leukocyte 500 (Negative); Nitrite Positive (Negative); Protein, Urine (Dipstick) 30 mg/dl (Neg-Trace); pH, Urine 6.5 (5.0-9.0)
[2022-03-28 17:10] LABS: WBC/HPF 21-50 HPF (0-3)
[2022-03-28 17:11] LABS: Bacteria/HPF 1+ HPF (None Seen); Squamous Epithelial 0-3 HPF (0-3)
[2022-03-28 18:28] LABS: Lactic Acid 2.8 mmol/L (0.5-2.2)
[2022-03-28] MEDS ORDERED: Dextrose 50% Abboject 50 ML SYRINGE SLOW IVP PRN (19:21)
[2022-03-28] MEDS ORDERED: Senokot S 8.6-50 MG TAB PO PRN (19:21)
[2022-03-28] MEDS ORDERED: Guaifenesin DM 100-10/5 ML UDCUP PO PRN (19:21)
[2022-03-28] MEDS ORDERED: Acetaminophen 325 MG TAB PO PRN (19:21)
[2022-03-28] MEDS ORDERED: Dextrose 5% in Water 1,000 ML IV PRN (19:21)
[2022-03-28] MEDS ORDERED: Ondansetron PF 4 MG/2 ML Vial IVP PRN (19:21)
[2022-03-28] MEDS ORDERED: Calcium Carbonate 500 MG ChewTAB PO PRN (19:21)
[2022-03-28] MEDS ORDERED: HumaLOG 300 UNITS/3 ML VIAL SC PRN (19:21)
[2022-03-28] MEDS ORDERED: Artificial Tear Sol 15 ML BOT EA EYE PRN (19:25)
[2022-03-28] MEDS ORDERED: [UNRECOGNIZED DRUG - OTHER] PO PRN (19:25)
[2022-03-28] MEDS ORDERED: Sodium Chloride 0.9% 1,000 ML IV SCH (19:30)
[2022-03-28] MEDS: Apixaban 5 MG TAB PO SCH (21:43)
[2022-03-28] MEDS: Metoprolol Tartrate 25 MG TAB PO SCH (21:43)
[2022-03-28] MEDS: Phenazopyridine HCl 95 MG TAB PO SCH (21:43)
[2022-03-28] MEDS: Gabapentin 100 MG CAP PO SCH (21:43)
[2022-03-28] MEDS: HYDROcodone/Acetaminophen 5/325 mg Tablet PO PRN (21:44)
[2022-03-28] MEDS: NPH, Human Insulin Isophane 300 UNIT/3 ML VIAL SC SCH (21:44)
[2022-03-28] MEDS ORDERED: Meropenem 1 GM in Sodium Chloride 0.9% 100 ML IVPB SCH (22:00)
[2022-03-29 01:38] LABS: SARS-CoV-2 NAA Rapid Test Not Detected (NotDetected)
[2022-03-29] MEDS: Meropenem 1 GM in Sodium Chloride 0.9% 100 ML IVPB SCH ×3 (05:22→22:40)
[2022-03-29 06:13] LABS: #Eosinphils 0.4 10x3/uL (0.0-0.5); #Monocytes 0.8 10x3/uL (0.0-1.1); #Neutrophils 4.3 10x3/uL (1.5-8.4); %Basophils 0.5 % (0.0-2.0); %Lymphocytes 25.9 % (18.0-47.0); %Monocytes 10.2 % (0.0-10.0); Mean Corpuscular HGB CONC 31.1 g/dL (32.0-36.0); Mean Corpuscular Hemoglobin 26.7 pg (27.0-33.0); Mean Corpuscular Volume 86.1 fl (81.6-98.3); Mean Platelet Volume 11.2 fl (7.4-10.4); Platelet Count 270 10x3/uL (150-450); RBC Distribution Width 20.4 % (11.5-14.5); Red Blood Cell (RBC) Count 3.74 10x6/uL (3.90-5.03); White Blood Cell (WBC) Count 7.3 10x3/uL (3.5-10.5)
[2022-03-29 06:35] LABS: Anion Gap 15 mmol/L (10-20); BUN (Urea Nitrogen) 14 mg/dL (9.8-20.1); Calc. Creatinine Clearance 179 mL/min (70-130); Calcium 9.8 mg/dL (7.8-10.44); Carbon Dioxide 24 mmol/L (23-31); Chloride 106 mmol/L (98-107); Estimated GFR 92; Glucose 86 mg/dL (80-115); Potassium 4.4 mmol/L (3.5-5.1); Sodium 141 mmol/L (136-145)
[2022-03-29 06:36] LABS: Lactic Acid 2.1 mmol/L (0.5-2.2)
[2022-03-29] MEDS: Saccharomyces boulardii 250 MG CAP PO SCH (08:54)
[2022-03-29] MEDS: HYDROcodone/Acetaminophen 5/325 mg Tablet PO PRN ×2 (08:54→21:19)
[2022-03-29] MEDS: Phenazopyridine HCl 95 MG TAB PO SCH ×3 (08:54→20:52)
[2022-03-29] MEDS: Linezolid 600 MG in Premix Bag 1 BAG IVPB SCH ×2 (08:54→20:46)
[2022-03-29] MEDS: Multivit, Therapeutic 1 TAB PO SCH (08:54)
[2022-03-29] MEDS: Apixaban 5 MG TAB PO SCH ×2 (08:54→20:52)
[2022-03-29] MEDS: Gabapentin 100 MG CAP PO SCH ×3 (08:55→20:52)
[2022-03-29] MEDS: Digoxin 0.25 MG TAB PO SCH (08:57)
[2022-03-29] MEDS: NPH, Human Insulin Isophane 300 UNIT/3 ML VIAL SC SCH ×2 (09:00→21:01)
[2022-03-29] MEDS: Metoprolol Tartrate 25 MG TAB PO SCH ×2 (09:00→21:58)
[2022-03-29 16:08] VITALS: BMI 63.3
[2022-03-29] MEDS: Estrogens, Conjugated 30 GM TUBE VAG SCH (21:00)
[2022-03-30] MEDS: Meropenem 1 GM in Sodium Chloride 0.9% 100 ML IVPB SCH ×3 (05:04→23:24)
[2022-03-30] MEDS: Phenazopyridine HCl 95 MG TAB PO SCH ×3 (09:50→22:42)
[2022-03-30] MEDS: Gabapentin 100 MG CAP PO SCH ×3 (09:51→22:00)
[2022-03-30] MEDS: Saccharomyces boulardii 250 MG CAP PO SCH (09:51)
[2022-03-30] MEDS: Digoxin 0.25 MG TAB PO SCH (09:52)
[2022-03-30] MEDS: Metoprolol Tartrate 25 MG TAB PO SCH ×2 (09:52→22:00)
[2022-03-30] MEDS: Multivit, Therapeutic 1 TAB PO SCH (09:57)
[2022-03-30] MEDS: Apixaban 5 MG TAB PO SCH ×2 (09:57→22:43)
[2022-03-30] MEDS: Linezolid 600 MG in Premix Bag 1 BAG IVPB SCH ×2 (10:03→20:09)
[2022-03-30] MEDS: NPH, Human Insulin Isophane 300 UNIT/3 ML VIAL SC SCH ×2 (15:01→23:17)
[2022-03-30] MEDS: HYDROcodone/Acetaminophen 5/325 mg Tablet PO PRN ×2 (17:26→22:48)
[2022-03-30] MEDS: Estrogens, Conjugated 30 GM TUBE VAG SCH (23:29)
[2022-03-31 04:53] LABS: Anion Gap 13 mmol/L (10-20); BUN (Urea Nitrogen) 14 mg/dL (9.8-20.1); Calc. Creatinine Clearance 172 mL/min (70-130); Calcium 9.8 mg/dL (7.8-10.44); Carbon Dioxide 25 mmol/L (23-31); Chloride 106 mmol/L (98-107); Estimated GFR 88; Glucose 143 mg/dL (80-115); Potassium 4.5 mmol/L (3.5-5.1); Sodium 139 mmol/L (136-145)
[2022-03-31] MEDS: Meropenem 1 GM in Sodium Chloride 0.9% 100 ML IVPB SCH ×3 (05:04→21:39)
[2022-03-31] MEDS: HYDROcodone/Acetaminophen 5/325 mg Tablet PO PRN ×2 (06:18→22:24)
[2022-03-31] MEDS: Phenazopyridine HCl 95 MG TAB PO SCH ×3 (09:07→21:41)
[2022-03-31] MEDS: Linezolid 600 MG in Premix Bag 1 BAG IVPB SCH (09:07)
[2022-03-31] MEDS: Gabapentin 100 MG CAP PO SCH ×3 (09:08→21:40)
[2022-03-31] MEDS: Saccharomyces boulardii 250 MG CAP PO SCH (09:10)
[2022-03-31] MEDS: Digoxin 0.25 MG TAB PO SCH (09:11)
[2022-03-31] MEDS: Apixaban 5 MG TAB PO SCH ×2 (09:12→21:40)
[2022-03-31] MEDS: Metoprolol Tartrate 25 MG TAB PO SCH ×2 (09:12→21:40)
[2022-03-31] MEDS: Multivit, Therapeutic 1 TAB PO SCH (09:13)
[2022-03-31] MEDS: NPH, Human Insulin Isophane 300 UNIT/3 ML VIAL SC SCH ×2 (09:14→21:41)
[2022-03-31] MEDS ORDERED: Fluconazole 100 MG TAB PO SCH ×2 (10:30→16:00)
[2022-03-31] MEDS: Estrogens, Conjugated 30 GM TUBE VAG SCH (21:45)
[2022-04-01] MEDS: Meropenem 1 GM in Sodium Chloride 0.9% 100 ML IVPB SCH (06:16)
[2022-04-01] MEDS: HYDROcodone/Acetaminophen 5/325 mg Tablet PO PRN (06:17)
[2022-04-01] MEDS ORDERED: Fluconazole 100 MG TAB PO SCH (09:00)
[2022-04-01] MEDS: Gabapentin 100 MG CAP PO SCH (10:04)
[2022-04-01] MEDS: Multivit, Therapeutic 1 TAB PO SCH (10:04)
[2022-04-01] MEDS: Saccharomyces boulardii 250 MG CAP PO SCH (10:04)
[2022-04-01] MEDS: Metoprolol Tartrate 25 MG TAB PO SCH (10:05)
[2022-04-01] MEDS: Phenazopyridine HCl 95 MG TAB PO SCH (10:05)
[2022-04-01] MEDS: Digoxin 0.25 MG TAB PO SCH (10:05)
[2022-04-01] MEDS: Apixaban 5 MG TAB PO SCH (10:05)
[2022-04-01] MEDS: NPH, Human Insulin Isophane 300 UNIT/3 ML VIAL SC SCH (10:06)
[2022-04-01 18:57] VITALS: BP 142/98; TEMP 98.1
== END 2022-04-01 11:30 | DRG 872 ==
LOC: CSHERS 14:14 → CSHTELE 17:56
PROVIDERS: ADMIT Internal Medicine; ATTEND Family Medicine
PROC: 3E03329 Introduction of Other Anti-infective into Peripheral Vein, Percutaneous Approach (ICD-10-PCS; 2022-03-28)
PROC: 5A09357 Assistance with Respiratory Ventilation, Less than 24 Consecutive Hours, Continuous Positive Airway Pressure (ICD-10-PCS; principal; 2022-03-29)
DX: A41.50 Gram-negative sepsis, unspecified (principal); N13.6 Pyonephrosis; M46.20 Osteomyelitis of vertebra, site unspecified; Z68.44 Body mass index [BMI] 60.0-69.9, adult; E87.2 Acidosis; J90 Pleural effusion, not elsewhere classified; J98.11 Atelectasis; I48.92 Unspecified atrial flutter; Z16.24 Resistance to multiple antibiotics; E66.01 Morbid (severe) obesity due to excess calories; G47.33 Obstructive sleep apnea (adult) (pediatric); G25.81 Restless legs syndrome; I25.10 Atherosclerotic heart disease of native coronary artery without angina pectoris; N28.89 Other specified disorders of kidney and ureter; F41.9 Anxiety disorder, unspecified; E11.65 Type 2 diabetes mellitus with hyperglycemia; I48.0 Paroxysmal atrial fibrillation; E11.69 Type 2 diabetes mellitus with other specified complication; Z20.822 Contact with and (suspected) exposure to COVID-19; Z79.4 Long term (current) use of insulin; Z79.899 Other long term (current) drug therapy; Z98.890 Other specified postprocedural states; Z79.01 Long term (current) use of anticoagulants; I25.2 Old myocardial infarction; Z88.1 Allergy status to other antibiotic agents; Z88.0 Allergy status to penicillin
CPT/HCPCS: 36415; 36416; 74177; 80048; 80053; 80162; 81003; 81015; 83605; 84145; 84484; 85025; 85652; 86140; 87040; 87086; 87324; 87449; 93005; 94799; 96374; J0696; J1815; J2020; J2185; J3490; Q9967; U0002

== ENCOUNTER 2022-04-27 15:59 | Inpatient (IN) | payer MEDICARE ==
[2022-04-27] MEDS ORDERED: Ondansetron PF 4 MG/2 ML Vial ONE (16:57)
[2022-04-27 17:04] LABS: #Basophils 0.1 10x3/uL (0.0-0.2); #Eosinphils 0.2 10x3/uL (0.0-0.5); #Monocytes 0.8 10x3/uL (0.0-1.1); #Neutrophils 11.8 10x3/uL (1.5-8.4); %Basophils 0.6 % (0.0-2.0); %Eosinophils 1.5 % (0.0-6.0); %Monocytes 5.4 % (0.0-10.0); %Neutrophils 79.2 % (40.0-75.0); Mean Corpuscular HGB CONC 31.1 g/dL (32.0-36.0); Mean Corpuscular Hemoglobin 28.6 pg (27.0-33.0); Mean Corpuscular Volume 91.9 fl (81.6-98.3); Mean Platelet Volume 11.6 fl (7.4-10.4); Platelet Count 326 10x3/uL (150-450)
[2022-04-27 17:24] LABS: ALT (SGPT) 19 U/L (8-55); AST (SGOT) 21 U/L (5-34); Albumin 3.9 g/dL (3.4-4.8); Alkaline Phosphatase 76 U/L (40-110); Anion Gap 16 mmol/L (10-20); BUN (Urea Nitrogen) 19 mg/dL (9.8-20.1); Bilirubin, Total 0.7 mg/dL (0.2-1.2); CK (CPK) 36 U/L (29-168); Calc. Creatinine Clearance 0 mL/min (70-130); Calcium 10.1 mg/dL (7.8-10.44); Carbon Dioxide 21 mmol/L (23-31); Chloride 109 mmol/L (98-107); Estimated GFR 78; Globulin 2.8 g/dL (2.4-3.5); Glucose 234 mg/dL (80-115); Lipase 27 U/L (8-78); Potassium 4.2 mmol/L (3.5-5.1); Protein, Total 6.7 g/dL (5.8-8.1); Sodium 142 mmol/L (136-145)
[2022-04-27 17:34] LABS: SARS-CoV-2 NAA Rapid Test Not Detected (NotDetected)
[2022-04-27 18:00] LABS: Bilirubin Neg (Negative); Blood, Urine 250 (Negative); Glucose, Urine (Dipstick) Normal (Negative); Ketone, Urine 5 mg/dL (Negative); Leukocyte 500 (Negative); Nitrite Negative (Negative); Protein, Urine (Dipstick) 100 mg/dl (Neg-Trace)
[2022-04-27 18:01] LABS: Clarity Cloudy (Clear)
[2022-04-27 18:14] LABS: RBC/HPF Greater than 50 HPF (0-3); WBC/HPF Greater Than 50 HPF (0-3)
[2022-04-27 18:15] LABS: Bacteria/HPF 2+ HPF (None Seen); Squamous Epithelial 0-3 HPF (0-3); Transitional Epithelial 0-3 HPF (None Seen)
[2022-04-27 18:17] LABS: Mucous/LPF Rare LPF (<2+)
[2022-04-27] MEDS ORDERED: cefTRIAXone\\ROCEPHIN 1 GM VIAL ONE (18:20)
[2022-04-27] MEDS ORDERED: Ondansetron ODT 4 MG TAB PO PRN (18:56)
[2022-04-27] MEDS ORDERED: Ondansetron PF 4 MG/2 ML Vial IVP PRN (18:56)
[2022-04-27] MEDS ORDERED: Acetaminophen 650 MG Suppository PR PRN (18:56)
[2022-04-27] MEDS ORDERED: Artificial Tear Sol 15 ML BOT EA EYE PRN (19:19)
[2022-04-27] MEDS ORDERED: Electrolyte Replacement Protocol FS PRN (19:20)
[2022-04-27 20:33] LABS: Magnesium 1.5 mg/dL (1.6-2.6)
[2022-04-27 21:15] LABS: Troponin I 0.011 ng/mL (< 0.028)
[2022-04-27 21:30] LABS: Lactic Acid 1.8 mmol/L (0.5-2.2)
[2022-04-27] MEDS ORDERED: Meropenem 1 GM in Sodium Chloride 0.9% 100 ML IVPB SCH ×2 (22:00→22:15)
[2022-04-27] MEDS ORDERED: Metoprolol Tartrate 25 MG TAB PO SCH (22:15)
[2022-04-27] MEDS ORDERED: Apixaban 5 MG TAB PO SCH (22:15)
[2022-04-27] MEDS ORDERED: NPH, Human Insulin Isophane 300 UNIT/3 ML VIAL SC SCH (22:15)
[2022-04-27] MEDS ORDERED: Dextrose 5% in Water 1,000 ML IV PRN (23:05)
[2022-04-27] MEDS ORDERED: Dextrose 50% Abboject 50 ML SYRINGE SLOW IVP PRN (23:05)
[2022-04-27] MEDS ORDERED: Dextrose 50% Abboject 50 ML SYRINGE SLOW IVP SCH (23:15)
[2022-04-27] MEDS ORDERED: Magnesium 2 GM/50 ML(in water) 2 GM in Premix Bag 1 BAG IVPB SCH (23:30)
[2022-04-27] MEDS: Sodium Chloride 0.9% 1,000 ML IV SCH (23:46)
[2022-04-28 00:08] VITALS: BMI 60.1
[2022-04-28 00:41] LABS: Troponin I 0.018 ng/mL (< 0.028)
[2022-04-28 04:21] LABS: #Basophils 0.1 10x3/uL (0.0-0.2); #Eosinphils 0.4 10x3/uL (0.0-0.5); #Monocytes 0.8 10x3/uL (0.0-1.1); #Neutrophils 8.3 10x3/uL (1.5-8.4); %Basophils 0.7 % (0.0-2.0); %Eosinophils 3.3 % (0.0-6.0); %Lymphocytes 20.6 % (18.0-47.0); %Monocytes 6.4 % (0.0-10.0); %Neutrophils 68.7 % (40.0-75.0); Hemoglobin 11.3 g/dL (12.0-15.5); Mean Corpuscular HGB CONC 30.8 g/dL (32.0-36.0); Mean Corpuscular Hemoglobin 29.1 pg (27.0-33.0); Mean Corpuscular Volume 94.6 fl (81.6-98.3); Mean Platelet Volume 11.8 fl (7.4-10.4); Platelet Count 294 10x3/uL (150-450); RBC Distribution Width 19.4 % (11.5-14.5); Red Blood Cell (RBC) Count 3.88 10x6/uL (3.90-5.03)
[2022-04-28 04:37] LABS: Phosphorus 3.2 mg/dL (2.3-4.7)
[2022-04-28 04:40] LABS: Anion Gap 14 mmol/L (10-20); BUN (Urea Nitrogen) 17 mg/dL (9.8-20.1); Calc. Creatinine Clearance 172 mL/min (70-130); Calcium 9.3 mg/dL (7.8-10.44); Carbon Dioxide 21 mmol/L (23-31); Chloride 112 mmol/L (98-107); Estimated GFR 86; Glucose 133 mg/dL (80-115); Potassium 4.4 mmol/L (3.5-5.1); Sodium 143 mmol/L (136-145)
[2022-04-28] MEDS: Meropenem 1 GM in Sodium Chloride 0.9% 100 ML IVPB SCH ×3 (05:37→22:27)
[2022-04-28] MEDS ORDERED: Nystatin Powder 15 GM BOT TOP PRN (09:09)
[2022-04-28] MEDS: Digoxin 0.25 MG TAB PO SCH (11:49)
[2022-04-28] MEDS: Saccharomyces boulardii 250 MG CAP PO SCH (11:49)
[2022-04-28] MEDS: Metoprolol Tartrate 25 MG TAB PO SCH ×2 (11:49→22:27)
[2022-04-28] MEDS: Apixaban 5 MG TAB PO SCH ×2 (11:49→22:26)
[2022-04-28] MEDS: NPH, Human Insulin Isophane 300 UNIT/3 ML VIAL SC SCH ×2 (11:59→22:27)
[2022-04-28] MEDS: Sodium Chloride 0.9% 1,000 ML IV SCH (14:02)
[2022-04-28] MEDS ORDERED: Iopamidol 300 61% 100 ML VIAL FS ONE (14:07)
[2022-04-28] MEDS: Acetaminophen 325 MG TAB PO PRN (22:27)
[2022-04-29 04:20] LABS: #Basophils 0.1 10x3/uL (0.0-0.2); #Eosinphils 0.5 10x3/uL (0.0-0.5); #Monocytes 0.8 10x3/uL (0.0-1.1); #Neutrophils 7.1 10x3/uL (1.5-8.4); %Basophils 0.8 % (0.0-2.0); %Eosinophils 4.6 % (0.0-6.0); %Lymphocytes 20.7 % (18.0-47.0); %Monocytes 7.7 % (0.0-10.0); %Neutrophils 65.8 % (40.0-75.0); Mean Corpuscular HGB CONC 30.6 g/dL (32.0-36.0); Mean Corpuscular Hemoglobin 28.7 pg (27.0-33.0); Mean Corpuscular Volume 93.7 fl (81.6-98.3); Mean Platelet Volume 11.2 fl (7.4-10.4); Platelet Count 269 10x3/uL (150-450); RBC Distribution Width 18.7 % (11.5-14.5); Red Blood Cell (RBC) Count 3.83 10x6/uL (3.90-5.03); White Blood Cell (WBC) Count 10.8 10x3/uL (3.5-10.5)
[2022-04-29 04:30] LABS: Anion Gap 11 mmol/L (10-20); BUN (Urea Nitrogen) 13 mg/dL (9.8-20.1); Calc. Creatinine Clearance 192 mL/min (70-130); Calcium 9.2 mg/dL (7.8-10.44); Carbon Dioxide 23 mmol/L (23-31); Chloride 111 mmol/L (98-107); Estimated GFR 96; Glucose 109 mg/dL (80-115); Sodium 141 mmol/L (136-145)
[2022-04-29] MEDS: Meropenem 1 GM in Sodium Chloride 0.9% 100 ML IVPB SCH ×3 (05:45→22:07)
[2022-04-29] MEDS: Sodium Chloride 0.9% 1,000 ML IV SCH ×2 (08:57→16:16)
[2022-04-29] MEDS: Saccharomyces boulardii 250 MG CAP PO SCH (08:57)
[2022-04-29] MEDS: Apixaban 5 MG TAB PO SCH ×2 (08:57→21:40)
[2022-04-29] MEDS: Digoxin 0.25 MG TAB PO SCH (08:57)
[2022-04-29] MEDS: Metoprolol Tartrate 25 MG TAB PO SCH ×2 (08:57→21:40)
[2022-04-29] MEDS: NPH, Human Insulin Isophane 300 UNIT/3 ML VIAL SC SCH (13:12)
[2022-04-30] MEDS: Sodium Chloride 0.9% 1,000 ML IV SCH ×2 (02:35→17:54)
[2022-04-30] MEDS: Meropenem 1 GM in Sodium Chloride 0.9% 100 ML IVPB SCH (06:11)
[2022-04-30 06:22] LABS: #Basophils 0.1 10x3/uL (0.0-0.2); #Eosinphils 0.4 10x3/uL (0.0-0.5); #Monocytes 0.7 10x3/uL (0.0-1.1); #Neutrophils 7.3 10x3/uL (1.5-8.4); %Basophils 0.8 % (0.0-2.0); %Lymphocytes 18.5 % (18.0-47.0); %Monocytes 6.4 % (0.0-10.0); %Neutrophils 69.9 % (40.0-75.0); Hemoglobin 11.4 g/dL (12.0-15.5); Mean Corpuscular HGB CONC 30.6 g/dL (32.0-36.0); Mean Corpuscular Hemoglobin 28.1 pg (27.0-33.0); Mean Corpuscular Volume 91.6 fl (81.6-98.3); Mean Platelet Volume 11.2 fl (7.4-10.4); Platelet Count 280 10x3/uL (150-450); RBC Distribution Width 18.4 % (11.5-14.5); Red Blood Cell (RBC) Count 4.06 10x6/uL (3.90-5.03); White Blood Cell (WBC) Count 10.5 10x3/uL (3.5-10.5)
[2022-04-30 06:50] LABS: Anion Gap 11 mmol/L (10-20); BUN (Urea Nitrogen) 8 mg/dL (9.8-20.1); Calc. Creatinine Clearance 195 mL/min (70-130); Calcium 8.8 mg/dL (7.8-10.44); Carbon Dioxide 22 mmol/L (23-31); Chloride 109 mmol/L (98-107); Estimated GFR 96; Glucose 128 mg/dL (80-115); Sodium 138 mmol/L (136-145)
[2022-04-30] MEDS: NPH, Human Insulin Isophane 300 UNIT/3 ML VIAL SC SCH ×3 (08:30→21:44)
[2022-04-30] MEDS: Metoprolol Tartrate 25 MG TAB PO SCH ×2 (08:56→21:44)
[2022-04-30] MEDS: Saccharomyces boulardii 250 MG CAP PO SCH (08:56)
[2022-04-30] MEDS: Digoxin 0.25 MG TAB PO SCH (08:56)
[2022-04-30] MEDS: Apixaban 5 MG TAB PO SCH ×2 (09:01→21:43)
[2022-04-30 12:14] LABS: Campy jejuni + coli by PCR Negative (Negative); STEC Shiga Toxin 1+2 Negative (Negative); Salmonella spp. by PCR Negative (Negative); Shigella spp + EIEC by PCR Negative (Negative)
[2022-05-01] MEDS: Acetaminophen 325 MG TAB PO PRN (01:52)
[2022-05-01 04:50] LABS: Anion Gap 13 mmol/L (10-20); BUN (Urea Nitrogen) 9 mg/dL (9.8-20.1); Calc. Creatinine Clearance 186 mL/min (70-130); Calcium 9.4 mg/dL (7.8-10.44); Carbon Dioxide 21 mmol/L (23-31); Chloride 108 mmol/L (98-107); Estimated GFR 95; Glucose 160 mg/dL (80-115); Potassium 4.4 mmol/L (3.5-5.1); Sodium 138 mmol/L (136-145)
[2022-05-01 04:52] LABS: #Basophils 0.1 10x3/uL (0.0-0.2); #Eosinphils 0.3 10x3/uL (0.0-0.5); #Monocytes 0.8 10x3/uL (0.0-1.1); #Neutrophils 7.3 10x3/uL (1.5-8.4); %Basophils 0.6 % (0.0-2.0); %Monocytes 7.5 % (0.0-10.0); %Neutrophils 66.5 % (40.0-75.0); Hemoglobin 11.5 g/dL (12.0-15.5); Mean Corpuscular HGB CONC 31.2 g/dL (32.0-36.0); Mean Corpuscular Hemoglobin 28.8 pg (27.0-33.0); Mean Corpuscular Volume 92.5 fl (81.6-98.3); Mean Platelet Volume 11.6 fl (7.4-10.4); Platelet Count 280 10x3/uL (150-450); Red Blood Cell (RBC) Count 3.99 10x6/uL (3.90-5.03); White Blood Cell (WBC) Count 10.9 10x3/uL (3.5-10.5)
[2022-05-01] MEDS: Sodium Chloride 0.9% 1,000 ML IV SCH (06:37)
[2022-05-01] MEDS: Saccharomyces boulardii 250 MG CAP PO SCH (09:05)
[2022-05-01] MEDS: Apixaban 5 MG TAB PO SCH (09:05)
[2022-05-01] MEDS: NPH, Human Insulin Isophane 300 UNIT/3 ML VIAL SC SCH (09:05)
[2022-05-01] MEDS: Metoprolol Tartrate 25 MG TAB PO SCH (09:05)
[2022-05-01] MEDS: Digoxin 0.25 MG TAB PO SCH (09:05)
[2022-05-02] MEDS: Apixaban 5 MG TAB PO SCH ×3 (00:26→21:11)
[2022-05-02] MEDS: NPH, Human Insulin Isophane 300 UNIT/3 ML VIAL SC SCH ×3 (00:26→21:14)
[2022-05-02] MEDS: Metoprolol Tartrate 25 MG TAB PO SCH ×3 (00:26→21:11)
[2022-05-02] MEDS: Sodium Chloride 0.9% 1,000 ML IV SCH ×2 (00:27→09:11)
[2022-05-02 06:15] LABS: #Basophils 0.1 10x3/uL (0.0-0.2); #Eosinphils 0.4 10x3/uL (0.0-0.5); #Monocytes 0.7 10x3/uL (0.0-1.1); #Neutrophils 6.8 10x3/uL (1.5-8.4); %Basophils 0.5 % (0.0-2.0); %Eosinophils 3.5 % (0.0-6.0); %Monocytes 6.5 % (0.0-10.0); %Neutrophils 67.3 % (40.0-75.0); Hemoglobin 11.8 g/dL (12.0-15.5); Mean Corpuscular Hemoglobin 28.4 pg (27.0-33.0); Mean Corpuscular Volume 91.8 fl (81.6-98.3); Platelet Count 293 10x3/uL (150-450); Red Blood Cell (RBC) Count 4.15 10x6/uL (3.90-5.03)
[2022-05-02 06:24] LABS: Anion Gap 10 mmol/L (10-20); BUN (Urea Nitrogen) 11 mg/dL (9.8-20.1); Calc. Creatinine Clearance 179 mL/min (70-130); Calcium 10.2 mg/dL (7.8-10.44); Carbon Dioxide 26 mmol/L (23-31); Chloride 106 mmol/L (98-107); Estimated GFR 91; Glucose 190 mg/dL (80-115); Potassium 4.3 mmol/L (3.5-5.1); Sodium 138 mmol/L (136-145)
[2022-05-02] MEDS: Saccharomyces boulardii 250 MG CAP PO SCH (09:06)
[2022-05-02] MEDS: Digoxin 0.25 MG TAB PO SCH (09:06)
[2022-05-02] MEDS ORDERED: HumaLOG 300 UNITS/3 ML VIAL SC PRN (11:57)
[2022-05-03] MEDS: Sodium Chloride 0.9% 1,000 ML IV SCH ×2 (00:03→11:51)
[2022-05-03 05:16] LABS: #Basophils 0.1 10x3/uL (0.0-0.2); #Eosinphils 0.3 10x3/uL (0.0-0.5); #Monocytes 0.6 10x3/uL (0.0-1.1); #Neutrophils 5.5 10x3/uL (1.5-8.4); %Basophils 0.8 % (0.0-2.0); %Eosinophils 3.7 % (0.0-6.0); %Lymphocytes 28.7 % (18.0-47.0); %Monocytes 6.1 % (0.0-10.0); %Neutrophils 60.5 % (40.0-75.0); Anion Gap 10 mmol/L (10-20); BUN (Urea Nitrogen) 10 mg/dL (9.8-20.1); Calc. Creatinine Clearance 225 mL/min (70-130); Calcium 9.3 mg/dL (7.8-10.44); Carbon Dioxide 22 mmol/L (23-31); Chloride 109 mmol/L (98-107); Estimated GFR 100; Glucose 104 mg/dL (80-115); Hemoglobin 11.2 g/dL (12.0-15.5); Magnesium 1.4 mg/dL (1.6-2.6); Mean Corpuscular HGB CONC 31.2 g/dL (32.0-36.0); Mean Corpuscular Hemoglobin 28.4 pg (27.0-33.0); Mean Corpuscular Volume 91.1 fl (81.6-98.3); Mean Platelet Volume 11.5 fl (7.4-10.4); Platelet Count 312 10x3/uL (150-450); Potassium 3.9 mmol/L (3.5-5.1); RBC Distribution Width 17.6 % (11.5-14.5); Red Blood Cell (RBC) Count 3.94 10x6/uL (3.90-5.03); Sodium 137 mmol/L (136-145)
[2022-05-03] MEDS: Metoprolol Tartrate 25 MG TAB PO SCH (09:25)
[2022-05-03] MEDS: NPH, Human Insulin Isophane 300 UNIT/3 ML VIAL SC SCH (09:25)
[2022-05-03] MEDS: Apixaban 5 MG TAB PO SCH (09:25)
[2022-05-03] MEDS: Saccharomyces boulardii 250 MG CAP PO SCH (09:25)
[2022-05-03] MEDS: Digoxin 0.25 MG TAB PO SCH (09:25)
[2022-05-03] MEDS: Magnesium 2 GM/50 ML(in water) 2 GM in Premix Bag 1 BAG IVPB SCH ×2 (09:26→11:50)
[2022-05-03 12:17] VITALS: BP 124/81; TEMP 98.5
[2022-05-03] MEDS ORDERED: Lactated Ringer's 1,000 ML IV SCH (12:30)
== END 2022-05-03 17:00 | DRG 872 ==
LOC: CSHERS 15:59 → CSHTELE 22:02
PROVIDERS: ADMIT Internal Medicine; ATTEND Internal Medicine
DX: A41.9 Sepsis, unspecified organism (principal); A04.72 Enterocolitis due to Clostridium difficile, not specified as recurrent; N39.0 Urinary tract infection, site not specified; E87.20 Acidosis, unspecified; Z20.822 Contact with and (suspected) exposure to COVID-19; E11.9 Type 2 diabetes mellitus without complications; E66.01 Morbid (severe) obesity due to excess calories; M79.7 Fibromyalgia; M19.90 Unspecified osteoarthritis, unspecified site; G47.33 Obstructive sleep apnea (adult) (pediatric); G25.81 Restless legs syndrome; F41.9 Anxiety disorder, unspecified; Z60.2 Problems related to living alone; I48.0 Paroxysmal atrial fibrillation; I25.10 Atherosclerotic heart disease of native coronary artery without angina pectoris; Z79.01 Long term (current) use of anticoagulants; Z88.0 Allergy status to penicillin; Z88.1 Allergy status to other antibiotic agents; Z87.440 Personal history of urinary (tract) infections; Z79.899 Other long term (current) drug therapy; Z79.4 Long term (current) use of insulin; Z87.442 Personal history of urinary calculi; I25.2 Old myocardial infarction
CPT/HCPCS: 36415; 36416; 51701; 71045; 74177; 80048; 80053; 81003; 81015; 82550; 83605; 83690; 83735; 84100; 84443; 84484; 85025; 87040; 87086; 87324; 87449; 87493; 87505; 93005; 94660; 94760; 96361; 96365; 96375; J0696; J1815; J2185; J2405; J3370; J3475; J3490; J7050; J7120; J7999; Q9967; U0002

== ENCOUNTER 2022-05-21 14:51 | Emergency (ER) | payer MEDICARE ==
[2022-05-21 16:09] LABS: #Basophils 0.1 10x3/uL (0.0-0.2); #Eosinphils 0.3 10x3/uL (0.0-0.5); #Monocytes 0.7 10x3/uL (0.0-1.1); #Neutrophils 7.5 10x3/uL (1.5-8.4); %Basophils 0.6 % (0.0-2.0); %Eosinophils 2.4 % (0.0-6.0); %Lymphocytes 19.9 % (18.0-47.0); %Monocytes 6.5 % (0.0-10.0); %Neutrophils 70.3 % (40.0-75.0); Hemoglobin 13.5 g/dL (12.0-15.5); Mean Corpuscular HGB CONC 32.4 g/dL (32.0-36.0); Mean Corpuscular Hemoglobin 28.2 pg (27.0-33.0); Mean Corpuscular Volume 87.2 fl (81.6-98.3); Mean Platelet Volume 11.1 fl (7.4-10.4); Platelet Count 329 10x3/uL (150-450); RBC Distribution Width 16.3 % (11.5-14.5); Red Blood Cell (RBC) Count 4.78 10x6/uL (3.90-5.03); White Blood Cell (WBC) Count 10.7 10x3/uL (3.5-10.5)
[2022-05-21 16:10] LABS: ALT (SGPT) 20 U/L (8-55); AST (SGOT) 25 U/L (5-34); Albumin 3.8 g/dL (3.4-4.8); Alkaline Phosphatase 88 U/L (40-110); Anion Gap 13 mmol/L (10-20); BUN (Urea Nitrogen) 13 mg/dL (9.8-20.1); Bilirubin, Total 0.3 mg/dL (0.2-1.2); Calc. Creatinine Clearance 0 mL/min (70-130); Calcium 10.7 mg/dL (7.8-10.44); Carbon Dioxide 24 mmol/L (23-31); Chloride 102 mmol/L (98-107); Estimated GFR 79; Globulin 3.4 g/dL (2.4-3.5); Glucose 225 mg/dL (80-115); Potassium 4.6 mmol/L (3.5-5.1); Protein, Total 7.2 g/dL (5.8-8.1); Sodium 134 mmol/L (136-145)
[2022-05-21 16:40] LABS: Bilirubin Neg (Negative); Blood, Urine 25 (Negative); Clarity Clear (Clear); Glucose, Urine (Dipstick) Normal (Negative); Ketone, Urine Negative (Negative); Leukocyte 500 (Negative); Nitrite Negative (Negative); Protein, Urine (Dipstick) 15 mg/dl (Neg-Trace); Urobilinogen Normal mg/dL (Less than 2)
[2022-05-21 16:59] LABS: WBC/HPF 21-50 HPF (0-3)
[2022-05-21 17:00] LABS: Bacteria/HPF Rare-Few HPF (None Seen)
== END 2022-05-21 21:55 | disposition home or self-care (01) ==
LOC: CSHERS 14:51
DX: N39.0 Urinary tract infection, site not specified (principal); E11.9 Type 2 diabetes mellitus without complications; I48.91 Unspecified atrial fibrillation; I25.10 Atherosclerotic heart disease of native coronary artery without angina pectoris; I25.2 Old myocardial infarction
CPT/HCPCS: 74176; 80053; 81003; 81015; 85025; 87086

== ENCOUNTER 2022-07-30 12:07 | Outpatient (CLI) | payer OTHER | END 2022-07-30 12:08 | disposition home or self-care (01) | LOC: CSHWCC 12:07 | PROVIDERS: ATTEND Nurse Practitioner Family | DX: I87.332 Chronic venous hypertension (idiopathic) with ulcer and inflammation of left lower extremity (principal); L97.821 Non-pressure chronic ulcer of other part of left lower leg limited to breakdown of skin; R60.0 Localized edema | CPT/HCPCS: 29581; 99204; G0463 ==

== ENCOUNTER 2022-09-02 12:47 | Outpatient (CLI) | payer MEDICARE | END 2022-09-02 12:48 | disposition home or self-care (01) | LOC: CSHWCC 12:47 | PROVIDERS: ATTEND Nurse Practitioner Family | DX: R60.0 Localized edema (principal); I25.10 Atherosclerotic heart disease of native coronary artery without angina pectoris; E11.29 Type 2 diabetes mellitus with other diabetic kidney complication; E66.01 Morbid (severe) obesity due to excess calories | CPT/HCPCS: 97139; G0463; 99213 ==

== ENCOUNTER 2022-09-30 13:29 | Outpatient (CLI) | payer MEDICARE | END 2022-09-30 13:30 | disposition home or self-care (01) | LOC: CSHWCC 13:29 | PROVIDERS: ATTEND Nurse Practitioner Family | DX: R60.0 Localized edema (principal) ==